=== PATIENT | female | born 1990 | race Caucasian/White ===

== ENCOUNTER 2020-02-22 18:32 | Emergency (ER) | payer BC ==
--- NOTE | 2020-02-22 19:57 | RAD REPORT ---
EXAM DESCRIPTION: RAD -Hand Left 3 View - 02/22/2020 7:41 pm CLINICAL HISTORY: Left hand pain status post injury FINDINGS: No fracture or dislocation is seen.
--- NOTE | 2020-02-22 20:16 | EDPHYS ---
Physician Documentation [facility] Name: Jennifer Pimentel Age: 29 yrs Sex: Female : 1990 Arrival Date: 02/22/2020 Time: 18:38 Bed 5 Private MD: ED Physician Andres Hughes HPI: 02/21 20:08 This 29 yrs old Female presents to ER via Ambulatory with complaints of cp Finger Injury. 20:08 The patient or guardian reports injury, pain, tenderness, painful ROM. cp 20:08 The complaints affect the left thumb. Context: resulted from attempt to catch punching cp bag from falling, felt thumb get hyperextended backward. Onset: The symptoms/episode began/occurred today. Associated signs and symptoms: Pertinent negatives: cyanosis distally, numbness distally. Historical: - Allergies: 19:12 PENICILLINS; sv - PMHx: 19:12 Endometrosis; Asthma; sv - PSHx: 19:12 left ovary removed and fallopian tube removed; sv - Immunization history:: Flu vaccine is not up to date. - Social history:: Smoking status: Patient denies any tobacco usage or history of. ROS: 20:12 Constitutional: Negative for fever. cp 20:12 Cardiovascular: Negative for chest pain. 20:12 Respiratory: Negative for cough. 20:12 Abdomen/GI: Negative for abdominal pain. 20:12 MS/extremity: Positive for pain, tenderness, of the left thumb, Negative for decreased range of motion, deformity, paresthesias. 20:12 Skin: Negative for rash. 20:12 Neuro: Negative for headache. 20:12 All other systems are negative. Exam: 20:13 Constitutional: The patient appears in no acute distress, alert, awake, well developed, cp well nourished. 20:13 Musculoskeletal/extremity: Extremities: grossly normal except: noted in the left thumb: pain, tenderness, ROM: full active range of motion, in the left thumb, limited passive range of motion due to pain, in the left thumb, Perfusion: the extremity is normally perfused throughout, Sensation intact. 20:13 Skin: intact with no signs of cellulitis. Vital Signs: 19:12 BP 108 / 82; Pulse 74; Resp 16; Temp 98.7; Pulse Ox 100% ; Weight 113.4 kg; Height 5 sv ft. 10 in. (177.80 cm); 19:12 Body Mass Index 35.87 (113.40 kg, 177.80 cm) sv Procedures: 20:30 Splinting: Splint applied to left thumb using thumb spica. applied by nurse. Examined cp by me, post splint application: neurovascular intact, Patient tolerated well. MDM: 20:06 Patient medically screened. cp 20:12 Differential diagnosis: dislocation, closed fracture, contusion, tendonitis. cp 20:14 Data reviewed: vital signs, nurses notes, radiologic studies, plain films. Counseling: cp I had a detailed discussion with the patient and/or guardian regarding: the historical points, exam findings, and any diagnostic results supporting the discharge/admit diagnosis, radiology results, to return to the emergency department if symptoms worsen or persist or if there are any questions or concerns that arise at home. 02/21 19:14 Order name: Hand Left 3 View XRAY; Complete Time: 20:11 sv 02/21 20:11 Interpretation: Report reviewed. cp 02/21 20:12 Order name: Thumb Spica Splint: left; Complete Time: 20:28 cp Administered Medications: 20:18 Drug: Tylenol 1000 mg Route: PO; ea 20:28 Follow up: Response: Medication administered at discharge. ea 20:19 Drug: Ibuprofen 800 mg Route: PO; ea 20:28 Follow up: Response: Medication administered at discharge. ea Disposition: 20:30 Chart complete. cp Disposition: 02/22/20 20:15 Discharged to Home. Impression: Unspecified sprain of left thumb. - Condition is Stable. - Discharge Instructions: Thumb Sprain. - Prescriptions for Naprosyn 500 mg Oral Tablet - take 1 tablet by ORAL route 2 times per day take with food; 20 tablet. - Medication Reconciliation Form, Thank You Letter, Antibiotic Education, Prescription Opioid Use form. - Follow up: Ricardo Juarez MD; When: 5 - 6 days; Reason: Worsening of condition. - Problem is new. - Symptoms have improved. Addendum: 02/24/2020 07:14 Co-signature as Attending Physician, Andres Hughes MD. r n Signatures: Dispatcher [employer] Shauna Mercado RN RN sv Nieto, Roman, MD MD rn Page, Corey, PA PA cp Antunez, Elena, RN RN ea Corrections: (The following items were deleted from the chart) 02/21 20:30 20:15 02/22/2020 20:15 Discharged to Home. Impression: Unspecified sprain of left ea thumb. Condition is Stable. Forms are Medication Reconciliation Form, Thank You Letter, Antibiotic Education, Prescription Opioid Use. Follow up: Ricardo Juarez; When: 5 - 6 days; Reason: Worsening of condition. Problem is new. Symptoms have improved. cp 02/22 19:14 02/21 20:20 Chart complete. cp cp
--- NOTE | 2020-02-22 20:16 | ER ---
Nurse's Notes [facility] Name: Jennifer Pimentel Age: 29 yrs Sex: Female : 1990 Arrival Date: 02/22/2020 Time: 18:38 Bed 5 Private MD: Diagnosis: Unspecified sprain of left thumb Presentation: 02/21 19:11 Chief complaint: Patient states: left thumb injury after trying to catch a punching sv bag. Reports finger bent back and popped. Coronavirus screen: Client denies travel out of the [place] in the last 14 days. At this time, the client does not indicate any symptoms associated with coronavirus-19. Ebola Screen: No symptoms or risks identified at this time. Risk Assessment: Do you want to hurt yourself or someone else? Patient reports no desire to harm self or others. Onset of symptoms was February 22, 2020. 19:11 Method Of Arrival: Ambulatory sv 19:11 Acuity: GARETH 4 sv 19:12 Initial Sepsis Screen: Does the patient meet any 2 criteria? No. Patient's initial sv sepsis screen is negative. Does the patient have a suspected source of infection? No. Patient's initial sepsis screen is negative. Triage Assessment: 19:11 General: Appears in no apparent distress. uncomfortable, well developed, Behavior is sv calm, cooperative, appropriate for age. Pain: Complains of pain in left thumb. Neuro: Level of Consciousness is awake, alert, obeys commands, Oriented to person, place, time, situation, Gait is steady. Respiratory: Respiratory effort is even, unlabored, Respiratory pattern is regular, symmetrical. Musculoskeletal: Range of motion: limited in IP of left thumb and MCP of left thumb. Historical: - Allergies: 19:12 PENICILLINS; sv - PMHx: 19:12 Endometrosis; Asthma; sv - PSHx: 19:12 left ovary removed and fallopian tube removed; sv - Immunization history:: Flu vaccine is not up to date. - Social history:: Smoking status: Patient denies any tobacco usage or history of. Screenin:08 Abuse screen: Denies threats or abuse. Nutritional screening: No deficits noted. ea Tuberculosis screening: No symptoms or risk factors identified. Fall Risk None identified. Assessment: 19:14 Reassessment: Ok by Dr Harris to input a hand xray. sv 20:14 General: Appears uncomfortable, Behavior is appropriate for age. Pain: Complains of ea pain in left thumb. Neuro: Level of Consciousness is awake, alert, obeys commands, Oriented to person, place, time. Respiratory: Airway is patent Respiratory effort is even, unlabored, Respiratory pattern is regular, symmetrical. Derm: Skin is pink, warm \T\ dry. Musculoskeletal: Swelling present in left thumb. 20:29 Reassessment: Patient and/or family updated on plan of care and expected duration. Pain ea level reassessed. Patient is alert, oriented x 3, equal unlabored respirations, skin warm/dry/pink. Discharge instruction given to patient, verbalized the understanding of instruction. Pt left ED ambulatory tolerating well. Vital Signs: 19:12 BP 108 / 82; Pulse 74; Resp 16; Temp 98.7; Pulse Ox 100% ; Weight 113.4 kg; Height 5 sv ft. 10 in. (177.80 cm); 19:12 Body Mass Index 35.87 (113.40 kg, 177.80 cm) sv ED Course: 18:38 Patient arrived in ED. ag5 18:49 Gerson Sosa PA is PHCP. cp 18:49 Andres Hughes MD is Attending Physician. cp 19:11 Triage completed. sv 19:11 Arm band placed on. sv 19:40 Hand Left 3 View XRAY In Process Unspecified. EDMS 20:08 Bruna Scott, DOMO is Primary Nurse. ea 20:09 Patient has correct armband on for positive identification. Bed in low position. Call ea light in reach. 20:15 Ricardo Juarez MD is Referral Physician. cp 20:28 No provider procedures requiring assistance completed. Patient did not have IV access ea during this emergency room visit. Administered Medications: 20:18 Drug: Tylenol 1000 mg Route: PO; ea 20:28 Follow up: Response: Medication administered at discharge. ea 20:19 Drug: Ibuprofen 800 mg Route: PO; ea 20:28 Follow up: Response: Medication administered at discharge. ea Outcome: 20:15 Discharge ordered by . cp 20:29 Discharged to home ambulatory, with family. ea 20:29 Condition: stable 20:29 Discharge instructions given to patient, Instructed on discharge instructions, follow up and referral plans. medication usage, Demonstrated understanding of instructions, follow-up care, medications, Prescriptions given X 1. 20:30 Patient left the ED. aliya Signatures: Dispatcher [employer] Shauna Mercado RN Gerson Carcamo PA PA cp Antunez, Elena RN RN Alvaro Zhu ag5 Corrections: (The following items were deleted from the chart) 19:15 19:12 Pulse 74bpm; Resp 16bpm; Pulse Ox 100%; Temp 98.7F; 113.4 kg; Height 5 ft. 10 sv in.; BMI: 35.8; sv
[2020-02-22] MEDS ORDERED: ACETAMINOPHEN 500 MG TAB ONE (20:30)
[2020-02-22] MEDS ORDERED: IBUPROFEN 400 MG TAB ONE (20:30)
[2020-02-23 04:37] VITALS: BP 108/82; TEMP 98.7; O2SAT 100
== END 2020-02-22 20:30 | disposition home or self-care (01) ==
LOC: ER 18:32
DX: S63.602A Unspecified sprain of left thumb, initial encounter (principal); Z88.0 Allergy status to penicillin
CPT/HCPCS: 99283

== ENCOUNTER 2021-08-19 09:22 | Day surgery (SDC) | payer OTHER ==
[2021-08-14 14:06] LABS: Urine Appearance CLEAR (Clear); Urine Bilirubin NEGATIVE (Negative); Urine Blood 2+ (Negative); Urine Color YELLOW (Yellow); Urine Glucose NEGATIVE (Negative); Urine Microscopic Reflex ORDER UMIC; Urine Protein NEGATIVE (Negative); Urine Specific Gravity 1.025 (1.005-1.030); Urine Urobilinogen 0.2 mg/dL (0.2-1.0); Urine pH 6.5 (5.0-7.0)
[2021-08-14 14:08] LABS: Urine Bacteria <20 /HPF (<20)
[2021-08-15 09:29] LABS: Hematocrit 36.8 % (36.0-45.0); Lymphocytes % 27.3 % (15.3-44.8); RBC Red Blood Cell Count 4.02 M/uL (3.86-4.86)
[2021-08-19] MEDS ORDERED: Ringers Lactate 1,000 ML IV ONE (09:52)
[2021-08-19] MEDS ORDERED: SCOPOLAMINE HYDROBROMIDE PATCH TD ONE (09:52)
[2021-08-19 09:57] LABS: Specific Gravity 1.025 (1.005-1.030)
[2021-08-19] MEDS ORDERED: CELECOXIB 100 MG CAPSULE ONE (11:05)
[2021-08-19] MEDS ORDERED: ACETAMINOPHEN 500 MG TAB ONE (11:05)
[2021-08-19] MEDS ORDERED: VASOPRESSIN 20 UNIT/ML VIAL ONE (11:07)
[2021-08-19] MEDS ORDERED: NA CHLORIDE 0.9% 100 ML IV ONE (11:07)
[2021-08-19] MEDS: BUPIVACAINE 0.25% PF 10 ML VIAL ONE ×2 (11:15→12:14)
[2021-08-19] MEDS ORDERED: LIDOCAINE 2% MPF 5 ML VIAL ONE (11:45)
[2021-08-19] MEDS ORDERED: propofoL 200 MG/20 ML VIAL IV ONE (11:45)
[2021-08-19] MEDS ORDERED: ONDANSETRON 4 MG/2 ML VIAL ONE ×2 (11:45→14:47)
[2021-08-19] MEDS ORDERED: ROCURONIUM 50 MG/5 ML VIAL IV ONE (11:45)
[2021-08-19] MEDS ORDERED: GLYCOPYRROLATE 0.2 MG/ML SYR ONE (11:45)
[2021-08-19] MEDS ORDERED: NEOSTIGMINE 1 MG/ML -10 ML VIAL ONE (11:45)
[2021-08-19] MEDS ORDERED: dexAMETHasone 10 MG/ML VIAL ONE (11:45)
[2021-08-19] MEDS ORDERED: FENTANYL CITR 250 MCG/5 ML ONE (11:45)
[2021-08-19] MEDS ORDERED: MIDAZOLAM HCL 2 MG/2 ML INJ ONE (11:45)
[2021-08-19] MEDS: Ringers Lactate 1,000 ML IV ONE ×2 (13:50→14:10)
[2021-08-19] MEDS ORDERED: Mastisol Adhesive Liq ONE (14:18)
[2021-08-19] MEDS ORDERED: HYDROCODONE/APAP 5/325 MG TAB PO PRN (14:28)
[2021-08-19] MEDS ORDERED: MEPERIDINE HCL 25 MG/ML SYR IM PRN (14:28)
[2021-08-19] MEDS ORDERED: PROMETHAZINE INJ 25 MG/ML AMP IV PRN (14:28)
[2021-08-19] MEDS ORDERED: IBUPROFEN 200 MG TAB PO PRN (14:28)
[2021-08-19] MEDS ORDERED: ALBUTEROL INHALER 60 PUFF/8 GM IH SCH (14:30)
--- NOTE | 2021-08-19 14:33 | P.BOP ---
Preoperative diagnosis: Rt adnexal mass, pelvic pain, endometriosis Postoperative diagnosis: Pelvic pain, Endometriosis, extensive bowel adhesions, ?appendicitis Primary procedure: diag laparoscopy, extensive BRITTANY, endmetriosis excision Secondary procedure: Dr Lloyd: lap eduardo Cdl Service Technician: Nicole Fernandez Estimated blood loss: minimal Specimen: endo of ant abd wall, appendix Findings: swollen adhered appendix Anesthesia: General Complications: None Transferred to: Recovery Room Condition: Good
[2021-08-19] MEDS: HYDROMORPHONE HCL 1 MG/ML INJ ONE ×2 (14:41→14:47)
[2021-08-19 15:30] VITALS: TEMP 97.4
[2021-08-19] MEDS ORDERED: HYDROCODONE/APAP 5/325 MG TAB ONE (15:43)
[2021-08-19 16:26] VITALS: BP 140/68; O2SAT 98
[2021-08-19] MEDS ORDERED: HOME MED 1 EA UNK (Diphenhydramine Hcl [Benadryl Allergy] 25 MG Tablet) PO SCH (21:00)
--- NOTE | 2021-08-20 00:54 | OP ---
Date of Procedure: 08/19/2021 Surgeon: Yennifer Hunt MD Acid Cutter: Nicole Cerna. Preoperative Diagnoses: Right adnexal mass, pelvic pain, endometriosis. Postoperative Diagnoses: Pelvic pain, endometriosis, extensive bowel adhesions and possible appendic itis. Procedures Performed: Diagnostic laparoscopy, extensive lysis of adhesions and endometriosis excisio n by me. Intraoperative consultation with Dr. Lloyd, who performed the laparoscopic appendectomy. Estimated Blood Loss: Minimal. Specimens: Endometriosis of the anterior abdominal wall and appendix. Findings: Swollen, adhered appendix and all the adhesions of the omentum, sigmoid and small bowel to the anterior abdominal wall, to the uterus, to the sidewalls and to the appendix. Anesthesia: General endotracheal. Complications: No complications. Drains: No drains. Condition: Stable. The patient was transferred to the recovery room in stable condition. Description Of Procedure: After informed consent was verified, the patient was taken back to OR and placed in supine fashion on the operating table. General anesthesia was given. She was placed in a dorsal lithotomy position using Rosales stirrups. Abdomen, vulva, vagina, and perineum were prepped an d draped in a sterile fashion. Shahid was placed to drain the bladder. It was difficult to place the uterine manipulator. It was difficult to manipulate into the uterine cavity so just a speculum was left with an Allis clamp on the anterior lip of the cervix to come back and later place the manipulat or after getting into the abdomen. The patient was placed in a supine fashion and local 0.25% Marcaine was injected at the infraumbilica l area. A 1 cm infraumbilical skin incision was made with the scalpel and fascia was dissected and t agged with 0 Vicryl sutures. Peritoneum was entered sharply. S-retractors were placed. After adequ ate insufflation, site of entry was checked and was unremarkable. There were adhesions all around th e site of entry and carefully looking in the left lower quadrant and right lower quadrant, clearly th ere were spots where I could place the trocar and so first a 5 left lower quadrant trocar was placed under direct vision, then a 5 left upper quadrant trocar was placed under direct vision. Once the Li gaSure was taken and grasper was used to create windows, the omentum was first taken down. Then, aft er changing from a 10 to a 5 scope, using the left upper quadrant scope, the infraumbilical adhesions and periumbilical adhesions were all taken down. Then coming to the left lower quadrant, there were significant sigmoid adhesions to the anterior abdo jeff wall. At any point during this time, I could not see any pelvic organ, so I kept taking down t he adhesions for the sigmoid colon to the left lateral wall and to the top of the uterine fundus. The anterior abdominal wall also had to be dissected between the uterus and the fascia in order for m e to create a space and so then the rest of the omental adhesions were taken down to expose the top o f the fundus of the uterus. Once this was done, then I was able to take down the rest of the adhesio ns from the right lateral sidewall. Here, adhesions from the anterior and lateral bell were taken d own sharply with the help of scissors. There was small bowel stuck here as well and this was taken d own. Then the next layer of adhesions were from another loop of small bowel, these were also taken down. Then left adnexal area was exposed, then more omental adhesions had to be taken down from the anterio r abdominal wall for me to see the sidewall in the inferior aspect as well as the uterus. Here, the adhesions had to be taken down from the uterus. There were sigmoid adhesions to the posterior wall o f the uterus and these were then taken down sharply, making sure a plane was created between the alva l and the uterine serosa. Once all the sigmoid adhesions were taken down from the left side, the ova ry and tube appeared to be completely adhered to the posterior broad ligament on the right side. Cul -de-sac seemed to be completely obliterated. I then worked on the adhesions on the left side so that I could start taking down the colon from the left all the way to the right and once this was done, I could find the sigmoid attachments to the adnexal region on the right side. Once these were taken d own, I could clearly see where the appendix was adhered to the anterior peritoneum of the mesosalpinx and broad ligament, superior to the round ligament. This was significantly elongated and swollen so intraoperative consultation, Dr. Lloyd had to come in and please look at his dictation for the re st of the note. I assisted on this part of the procedure so that he could finish his appendectomy. The surgery was turned over to me and finished taking down this to the sigmoid adhesions to try and i dentify the tube and ovary, but this was extremely difficult as these were adhered with cul-de-sac ob literation as well. So, the endometriosis on the anterior fascial bell were excised as there were 2 large implants. No other endometriosis seen in isolated fashion. On the left side, it was difficul t to even identify the tube, the ovary was gone and on the right side as I dictated, it was difficult to visualize these separately and this was not a time where I could dissect the lateral sidewall as there were significant adhesions from the bowel itself. Thorough irrigation and suction were performed after his surgery and after making sure that all the b ed of dissection that I did was hemostatic and moved on to the next part of the procedure where all t he trocars were removed. The left upper quadrant incision had some bleeding from it so a 3-0 Monocry l was used with the Vince-Rowena needle to stitch tie the area where it was bleeding slightly. On ce this was done, there was excellent hemostasis. All trocar sites were completely unremarkable. Tr ocars were pulled out, injected with 0.25% Marcaine at the beginning and at the end. The fascia at t he umbilicus was closed with the help of the 0 Vicryl sutures, tagged on the sides, tied to each othe r and 3-0 and 4-0 chromic sutures in an interrupted fashion were used to close all the skin incisions . Shahid was removed. No uterine manipulator was placed. All instruments were removed. Instrument, needle, and sponge counts were correct at the end of the case. The patient tolerated the procedure well. She got 2 g of Ancef at the end of the procedure. She will follow up with me in 1 week. Her partner was debriefed about all the findings. 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 BIBIANA/SHANON Voice ID: [id number] Report ID: [id number]
--- NOTE | 2021-08-20 04:45 | OP ---
Date of Procedure: 08/19/2021 Surgeon: David Lloyd MD Ms. Pimentel is a 31-year-old patient whom Dr. Hunt from [facility] brought into the OR for the plan o f apparent hysterectomy. I have not seen the patient in the past. The information that I have is li juan pablod by what I get from the primary doctor, but while she was in OR, they found the appendix to be i nflamed and they called me for STAT evaluation for appendectomy. Once again, we have not seen this p atient before, so we have to proceed with appendectomy since I agree with Dr. Hunt, it looked inf lamed. The trocars and the instruments were already in the abdomen, so I was not there for the begin terence of the case until now and I left the OR after my appendectomy and Dr. Hunt continued with e service. On my initial evaluation, I noticed the patient to have, and I agree with them, appendici tis with the base of the appendix spared from that inflammation. There were some omental adhesions t o the appendix, which was consistent with chronic inflammation. The base of the appendix was identif ied free of disease, so we created a window in the base of the appendix, transected that with the End o-LULI 45 mm nonvascular. The mesoappendix was transected carefully with the help of Harmonic scalpel , making sure that no other injuries were there. We were away from the bowel. No enterotomies were done. After finishing the case, further hemostasis was obtained with the 5 mm clips after the append ix was removed from the abdomen. We irrigated the area. Once again checked the area of the cecum. There was no bowel leak and the area where the mesoappendix was, there was no bleeding. At that mome nt, I gave the instrument back to Dr. Hunt, and she will continue with her gynecological plan. I will advise the patient to be sent to my office. Addendum: When she was awake in the day surgery, I was able to contact her and also her family membe r. I explained to her my part on the surgery, and how I was not there for the beginning, but Dr. Elmira corona noticed her to have an appendicitis and therefore, the appendectomy had to be done and she want ed some help from General Surgery. I was happy to be able to assist in the case, but when she goes h ome, we advised her to follow with me in a week from now. Also, follow up with Dr. Hunt. No hea vy lifting, no more than 20 pounds. She asked me some questions about why the hysterectomy was not d one, and I am going to have to decline any answers because I was not there and I was not part of the management of that area, but I am going to ask the nurse here to be able to call Dr. Hunt to give further explanation that she deserved. From the surgical standpoint, we asked the patient once agai n not to do heavy lifting and follow with me in a week from now. BETTINA/SHANON Voice ID: [id number] Report ID: [id number]
[2021-08-20] MEDS ORDERED: HOME MED 1 EA UNK (Cetirizine Hcl [Zyrtec] 10 MG Tablet) PO SCH (09:00)
== END 2021-08-19 16:30 | disposition home or self-care (01) ==
LOC: OR 09:22
PROVIDERS: ATTEND Obstetrics & Gynecology
PROC: 0DNU4ZZ Release Omentum, Percutaneous Endoscopic Approach (ICD-10-PCS; 2021-08-19)
PROC: 0DNN4ZZ Release Sigmoid Colon, Percutaneous Endoscopic Approach (ICD-10-PCS; 2021-08-19)
PROC: 0DN84ZZ Release Small Intestine, Percutaneous Endoscopic Approach (ICD-10-PCS; 2021-08-19)
PROC: 0UN94ZZ Release Uterus, Percutaneous Endoscopic Approach (ICD-10-PCS; 2021-08-19)
PROC: 0DTJ4ZZ Resection of Appendix, Percutaneous Endoscopic Approach (ICD-10-PCS; 2021-08-19)
PROC: 0WBF4ZZ Excision of Abdominal Wall, Percutaneous Endoscopic Approach (ICD-10-PCS; principal; 2021-08-19 11:00)
DX: R10.2 Pelvic and perineal pain (principal); N80.3 Endometriosis of pelvic peritoneum; N94.6 Dysmenorrhea, unspecified; N92.0 Excessive and frequent menstruation with regular cycle; R19.09 Other intra-abdominal and pelvic swelling, mass and lump; Z20.822 Contact with and (suspected) exposure to COVID-19; Z88.0 Allergy status to penicillin
CPT/HCPCS: 85025; 36415; 86900; 86850; 81025; 86901; 88304; 88305; 58662; 49329; 44180; 58578; 44970; U0002; J2704; J2710; J2250; J3010; J1100; J1170; J7120 ×2; J2405 ×2; 81003; 81015

== ENCOUNTER 2021-08-24 16:48 | Inpatient (IN) | payer OTHER ==
[2021-08-24 18:30] LABS: Absolute Lymphocytes (CBC) 0.6 K/uL (0.7-4.9); Hematocrit 39.7 % (36.0-45.0); Lymphocytes % 4.2 % (15.3-44.8); MPV 8.8 fL (7.6-11.3); RBC Red Blood Cell Count 4.38 M/uL (3.86-4.86)
[2021-08-24] MEDS ORDERED: NA CHLORIDE 0.9% 1,000 ML ONE ×2 (18:37→21:04)
[2021-08-24] MEDS ORDERED: ONDANSETRON 4 MG/2 ML VIAL ONE ×2 (18:37→22:15)
[2021-08-24] MEDS ORDERED: FAMOTIDINE 20 MG/2 ML VIAL IV ONE (18:37)
[2021-08-24 18:41] LABS: Albumin 4.2 g/dL (3.4-5.0); Bilirubin Total 0.5 mg/dL (0.2-1.0); Potassium 3.5 mmol/L (3.5-5.1); Protein, Total 7.8 g/dL (6.4-8.2)
--- NOTE | 2021-08-24 19:32 | RAD REPORT ---
EXAM DESCRIPTION: CT - Abdomen Pelvis W Contrast - 08/24/2021 7:11 pm CLINICAL HISTORY: Abdominal pain, acute, nonlocalized, appendectomy and endometriosis surgery severa l days earlier COMPARISON: Pelvis W/Wo Cont dated 07/22/2021 TECHNIQUE: Biphasic, helical CT imaging of the abdomen and pelvis was performed following 100 ml non -ionic IV contrast. No oral contrast. All CT scans are performed using dose optimization technique as appropriate and may include automated exposure control or mA/KV adjustment according to patient size. FINDINGS: No suspicious findings in the lung bases. Mild diffuse fatty infiltration of the liver with no focal liver lesion. No pancreatic or splenic abn ormality. Gallbladder and biliary tree are also without suspicious finding. Symmetric renal function is seen with no hydronephrosis or suspicious renal mass. No pyelonephritis o r acute parenchymal process. No bladder abnormalities. No adrenal abnormalities. Approximately 5 centimeter heterogeneous hypodense to isodense masses present in the posterior uterus . This presumed fibroid was seen on the July pelvic MRI study. No gross change to the uterus. Left o vary is not clearly defined. No left adnexal abnormality seen. An 8 x 5 centimeter cystic mass is pre sent with septation. Mass is located in the right adnexa. Cystic attenuation ranges from 5-15 HU. The July MRI study showed a 6 x 4 cm cystic mass with septation in the right adnexa. Current mass compl ex may simply be interval enlargement. History indicates endometriosis surgery. Full extent of proced ure performed is uncertain. Postoperative seroma is possible. Abscess is not likely. Hydrosalpinx is possible. Appendectomy clips are present. No acute large or small bowel finding. No free air, pneumatosis or f ree fluid. No hernia, mass or bulky lymphadenopathy. No suspicious bony findings. IMPRESSION: A right adnexal 8 x 5 cm cystic mass with septation is seen. Central cystic attenuation is 5- 15 HU in range. The July MRI study showed a 6 x 4 cm mass of similar characteristics but smaller size. The current f inding may represent interval enlargement. It is unknown what surgery procedures performed other than appendectomy. Abscess is not suspected. Postop seroma is unlikely. Hydrosalpinx is unlikely but not entirely exclud ed. Appendectomy surgical changes noted. No acute GI finding. Posterior uterine fibroid matching the July study.
--- NOTE | 2021-08-24 19:39 | RAD REPORT ---
EXAM DESCRIPTION: RAD - Chest Single View - 08/24/2021 6:48 pm CLINICAL HISTORY: FEVER COMPARISON: None TECHNIQUE: AP portable chest image was obtained 08/24/2021 6:48 pm . FINDINGS: Lungs are clear. Heart and vasculature are normal. No measurable pleural effusion and no p neumothorax. No acute bony abnormality seen. No acute aortic findings suspected. IMPRESSION: No acute cardiopulmonary process.
[2021-08-24 19:43] LABS: Urine Blood 1+ (Negative); Urine Glucose Negative (Negative); Urine Protein Negative (Negative); Urine pH 7.5 (5.0-7.0)
[2021-08-24] MEDS ORDERED: FENTANYL CITR 100 MCG/2 ML ONE ×2 (20:05→21:51)
[2021-08-24 20:19] LABS: Urine Bacteria <20 /HPF (<20)
[2021-08-24] MEDS ORDERED: Meropenem 1000 MG/VIAL IV ONE (21:49)
[2021-08-24] MEDS ORDERED: NA CHLORIDE 0.9% 100 ML IV ONE (21:51)
--- NOTE | 2021-08-24 22:13 | EDPHYS ---
Physician Documentation [facility] Name: Jennifer Pimentel Age: 31 yrs Sex: Female : 1990 Arrival Date: 08/24/2021 Time: 16:50 Bed 6 Private MD: ED Physician Carl Bowen HPI: 08/24 18:00 This 31 yrs old Female presents to ER via Wheelchair with complaints of Fever, Post cp Surgical Pain. 18:00 The patient reports fever, that was measured at 100.8 degrees Fahrenheit. cp 18:00 Onset: The symptoms/episode began/occurred today. Associated signs and symptoms: cp Pertinent positives: nausea, vomiting, body aches, tingling of hands and feet. Severity of symptoms: in the emergency department the symptoms are unchanged despite home interventions. Patient presents to the emergency department with complaints of nausea vomiting, generalized pain and body aches, and a fever as high as 100.8 today. Patient reports she had appendectomy performed by general surgeon at this facility this past Thursday with a surgical procedure to remove adhesions caused by endometriosis by Dr. Hunt. Patient reports she has been taking Cipro and Flagyl and contacted the office with Dr. Hamilton today after symptoms started with concerns for possible medication reaction. She was instructed to stop the Cipro and a different antibiotic was called into the pharmacy. Patient reports she has not picked up this new antibiotic as symptoms continue to get worse so she came to the emergency room for evaluation. 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 - Social history:: Smoking status: unknown. ROS: 18:05 Constitutional: Positive for body aches, chills, poor PO intake, Negative for fever. cp 18:05 Eyes: Negative for injury, pain, redness, and discharge. cp 18:05 ENT: Negative for drainage from ear(s), ear pain, sore throat, difficulty swallowing, difficulty handling secretions. 18:05 Cardiovascular: Negative for chest pain, palpitations. 18:05 Respiratory: Negative for cough, shortness of breath, wheezing. 18:05 Abdomen/GI: Positive for abdominal pain, nausea and vomiting, Negative for diarrhea, constipation. 18:05 Back: Positive for pain at rest, pain with movement. 18:05 Skin: Negative for cellulitis, rash. 18:05 Neuro: Negative for altered mental status, headache. 18:05 All other systems are negative. Exam: 18:10 Constitutional: The patient appears in no acute distress, alert, awake, non-toxic, well cp developed, well nourished, uncomfortable. 18:10 Head/Face: Normocephalic, atraumatic. cp 18:10 Eyes: Periorbital structures: appear normal, Conjunctiva: normal, no exudate, no injection, Sclera: no appreciated abnormality, Lids and lashes: appear normal, bilaterally. 18:10 ENT: External ear(s): are unremarkable, Nose: is normal, Mouth: Lips: moist, Oral mucosa: pink and intact, moist, Posterior pharynx: Airway: no evidence of obstruction, patent, Tonsils: are normal in appearance, erythema, is not appreciated, exudate, is not appreciated. 18:10 Neck: ROM/movement: is normal, is supple, without pain, no range of motions limitations, no meningismus, no nuchal rigidity. 18:10 Chest/axilla: Inspection: normal, Palpation: is normal, no crepitus, no tenderness. 18:10 Cardiovascular: Rate: tachycardic, Rhythm: regular. 18:10 Respiratory: the patient does not display signs of respiratory distress, Respirations: normal, no use of accessory muscles, no retractions, labored breathing, is not present, Breath sounds: are clear throughout, no decreased breath sounds, no stridor, no wheezing. 18:10 Abdomen/GI: Inspection: bruising, all quadrants, distension, is not seen, Bowel sounds: active, all quadrants, Palpation: soft, in all quadrants, moderate abdominal tenderness, in the right lower quadrant and left lower quadrant, rebound tenderness, is not appreciated, involuntary guarding, is not appreciated. 18:10 Back: CVA tenderness, is absent. 18:10 Skin: cellulitis, is not appreciated, no rash present. 18:10 Neuro: Orientation: to person, place \\T\\ time. Mentation: is normal, Motor: moves all fours, strength is normal, Sensation: no obvious gross deficits. Vital Signs: 17:07 Pulse 117; Resp 18; Temp 98.2; Pulse Ox 98% on R/A; iw 19:57 BP 102 / 76; kd3 20:58 Pulse 102; kd3 22:13 BP 127 / 81; Pulse 92; Pulse Ox 99% on R/A; kd3 08/25 00:30 Pulse 94; Resp 19; Pulse Ox 99% on R/A; kd3 MDM: 08/24 18:35 Patient medically screened. cp 19:00 Differential diagnosis: pneumonia UTI, intra abdominal infection. cp 20:54 Physician consultation: Yennifer Hunt MD was called at 20:55, left message on voicemail. 21:00 Data reviewed: vital signs, nurses notes, lab test result(s), radiologic studies, CT cp scan. 21:00 Counseling: I had a detailed discussion with the patient and/or guardian regarding: the cp historical points, exam findings, and any diagnostic results supporting the discharge/admit diagnosis, lab results, radiology results. 21:15 Physician consultation: Yennifer Hunt MD was contacted at 21:15, regarding consult, cp patient's condition, would like consultation with Dr. Lloyd. 21:25 Physician consultation: David Lloyd MD was contacted at 21:20, regarding patient's cp condition, recommends admission for observation, IV antibiotics and will consult and see patient on Thursday once he returns to [facility]. 21:30 Physician consultation: Yennifer Hunt MD was contacted at 21:30, regarding consult, cp patient's condition, requests admission to hospitalist services and will see patent in morning for evaluation. 08/24 17:36 Order name: CBC with Diff; Complete Time: 19:41 ma2 08/24 19:43 Interpretation: Normal except: WBC 14.9; SHOLA% 82.0; LYM% 4.2; NEUT A 12.2; LYMA 0.6; cp MNA 1.5. 08/24 17:36 Order name: CMP; Complete Time: 19:41 ma2 08/24 19:41 Interpretation: Normal except: NA 134; GLUC 108; BUN 5. cp 08/24 17:36 Order name: Lipase; Complete Time: 19:41 ma2 08/24 18:29 Order name: Urine Microscopic Only; Complete Time: 20:32 cp 08/24 20:32 Interpretation: URBC 5-10; SQEPI 10-20; Reviewed. 08/24 18:29 Order name: Lactate; Complete Time: 19:41 cp 08/24 18:29 Order name: XRAY Chest (1 view); Complete Time: 19:41 cp 08/24 18:29 Order name: CT Abd/Pelvis - IV Contrast Only; Complete Time: 19:41 cp 08/24 18:44 Order name: Creatine Phosphokinase; Complete Time: 19:41 EDMS 08/24 19:43 Order name: Urine Dipstick-Ancillary; Complete Time: 19:53 EDMS 08/24 20:20 Order name: Urine --Ancillary (enter results); Complete Time: 20:32 wm 08/24 21:18 Order name: Blood Culture Adult (2) cp 08/24 21:18 Order name: Procalcitonin; Complete Time: 02:46 cp 08/24 22:31 Order name: COVID-19 SARS RT PCR (Document "Date of Onset" if Symptomatic); Complete cp Time: 02:46 08/24 17:36 Order name: IV Saline Lock; Complete Time: 18:14 ma2 08/24 17:36 Order name: Labs collected and sent; Complete Time: 18:14 ma2 08/24 17:36 Order name: Urine Dipstick-Ancillary (obtain specimen); Complete Time: 19:44 ma2 08/24 17:36 Order name: Urine Test (obtain specimen); Complete Time: 19:44 ma2 Administered Medications: 18:37 Drug: Pepcid (famotidine) 20 mg Route: IVP; Site: right antecubital; 08/25 00:32 Follow up: Response: No adverse reaction [facility] 08/24 18:38 Drug: NS 0.9% 1000 ml Route: IV; Rate: 1 bolus; Site: right antecubital; 08/25 00:32 Follow up: Response: No adverse reaction; IV Status: Completed infusion [facility] 08/24 18:38 Drug: Zofran (Ondansetron) 4 mg Route: IVP; Site: right antecubital; 08/25 00:33 Follow up: Response: No adverse reaction [facility] 08/24 20:07 Drug: fentaNYL (PF) 25 mcg Route: IVP; Site: right antecubital; [facility] 08/25 00:32 Follow up: Response: No adverse reaction 3 08/24 21:09 Drug: NS 0.9% 1000 ml Route: IV; Rate: 1 bolus; Site: right antecubital; 08/25 00:32 Follow up: IV Status: Completed infusion 08/24 21:52 Drug: fentaNYL (PF) 25 mcg Route: IVP; Site: right antecubital; 3 08/25 00:31 Follow up: Response: No adverse reaction 08/24 21:53 Drug: Meropenem 1 grams Route: IV; Rate: calculated rate; Site: right antecubital; 3 08/25 00:31 Follow up: IV Status: Completed infusion 00:32 Follow up: Response: No adverse reaction 08/24 22:12 Drug: Zofran (Ondansetron) 4 mg Route: IVP; Site: right antecubital; 3 08/25 00:31 Follow up: Response: No adverse reaction 08/24 23:32 Drug: Phenergan (promethazine) 12.5 mg Route: IVP; Site: right antecubital; 3 08/25 00:31 Follow up: Response: No adverse reaction kd3 Disposition Summary: 08/24/21 22:12 Hospitalization Ordered Hospitalization Status: Observation cp Provider: Mauricio Hall cp [facility] cp Condition: Stable cp Problem: new cp Symptoms: have improved cp Bed/Room Type: Standard cp Room Assignment: 223(08/25/21 00:15) ll1 Diagnosis - Nausea with vomiting, unspecified cp - Fever, unspecified cp Forms: - Medication Reconciliation Form cp - SBAR form cp Signatures: Dispatcher [employer] EDMS Radha Boo RN RN iw Smirch, Shelby, RN RN ss Page, Corey, PA PA cp Carl Bowen MD MD ma2 Claudia Jo RN RN ll1 Claire Marie RN RN kd3 Rosario Kumar PA PA sb3 Corrections: (The following items were deleted from the chart) 08/24 18:44 18:29 CREATINE PHOSPHOKINASE+C.LAB.BRZ ordered. EDMS EDMS 19:43 19:41 Normal except: WBC 14.9. cp cp 19:44 18:29 Zehra poole. cp kd3 20:32 20:32 [facility]. cp 08/25 00:15 08/24 22:12 cp 1
--- NOTE | 2021-08-24 22:13 | ER ---
Nurse's Notes [facility] Name: eJnnifer Pimentel Age: 31 yrs Sex: Female : 1990 Arrival Date: 08/24/2021 Time: 16:50 Bed 6 Private MD: Diagnosis: Nausea with vomiting, unspecified;Fever, unspecified Presentation: 08/24 17:07 Chief complaint: Patient states: had surgery for endometriosis and appendectomy on iw Thursday , Dr. Hunt did the surgery, someone else took the appendix out, was started on cipro and flagyl. and nauseous, bay aches, fingers and toes were tingling, fever at home. Coronavirus screen: Client presents with at least one sign or symptom that may indicate coronavirus-19. Ebola Screen: Patient negative for fever greater than or equal to 101.5 degrees Fahrenheit, and additional compatible Ebola Virus Disease symptoms Patient denies exposure to infectious person. Patient denies travel to an Ebola-affected area in the 21 days before illness onset. No symptoms or risks identified at this time. Initial Sepsis Screen: Does the patient have a suspected source of infection?. Initial Sepsis Screen: Does the patient meet any 2 criteria? No. Patient's initial sepsis screen is negative. Does the patient have a suspected source of infection?. Risk Assessment: Do you want to hurt yourself or someone else? Patient reports no desire to harm self or others. Onset of symptoms was August 24, 2021. 17:07 Method Of Arrival: Wheelchair iw 17:07 Acuity: GARETH 3 iw Triage Assessment: 20:58 General: Appears in no apparent distress. Behavior is agitated. Pain: Pain currently is kd3 5 out of 10 on a pain scale. DIRECTOR OF OFFICIATING: 08/25 00:30 LMP 07/24/2021 kd3 Historical: - Allergies: 08/24 17:10 PENICILLINS; iw - PMHx: 17:10 Asthma; Endometrosis; iw - Immunization history:: Adult Immunizations. - Social history:: Smoking status: unknown. Screenin:38 Abuse screen: Denies threats or abuse. Denies injuries from another. Nutritional ss screening: No deficits noted. 21:10 Fall Risk IV access (20 points). kd3 21:10 Tuberculosis screening: No symptoms or risk factors identified. kd3 Assessment: 18:38 Reassessment: Attempted to place patient in wheelchair and to wait in lobby with family ss member for staffed room to become available. Pt is upset and refusing to leave room because sitting in a chair is uncomfortable for her. Pt and family member verbalizes understanding that they are not in a staffed room and they will have to wait for one to become available as if they were in the lobby. Vital Signs: 17:07 Pulse 117; Resp 18; Temp 98.2; Pulse Ox 98% on R/A; iw 19:57 BP 102 / 76; kd3 20:58 Pulse 102; kd3 22:13 BP 127 / 81; Pulse 92; Pulse Ox 99% on R/A; kd3 08/25 00:30 Pulse 94; Resp 19; Pulse Ox 99% on R/A; kd3 ED Course: 08/24 16:50 Patient arrived in ED. mr 17:10 Triage completed. iw 17:10 Arm band placed on. iw 18:14 CBC with Diff Sent. zm 18:14 CMP Sent. zm 18:14 Lipase Sent. zm 18:14 Inserted saline lock: 22 gauge in right antecubital area, using aseptic technique. zm Blood collected. 18:15 Gerson Sosa PA is PHCP. cp 18:15 Carl Bowen MD is Attending Physician. cp 18:37 Treva Lema, RN is Primary Nurse. ss 18:50 XRAY Chest (1 view) In Process Unspecified. EDMS 19:13 CT Abd/Pelvis - IV Contrast Only In Process Unspecified. EDMS 21:10 Patient has correct armband on for positive identification. kd3 21:10 No provider procedures requiring assistance completed. kd3 22:12 Mauricio Hall is Hospitalizing Provider. cp 08/25 00:30 Patient admitted, IV remains in place. kd3 Administered Medications: 08/24 18:37 Drug: Pepcid (famotidine) 20 mg Route: IVP; Site: right antecubital; 08/25 00:32 Follow up: Response: No adverse reaction kd3 08/24 18:38 Drug: NS 0.9% 1000 ml Route: IV; Rate: 1 bolus; Site: right antecubital; 08/25 00:32 Follow up: Response: No adverse reaction; IV Status: Completed infusion kd3 08/24 18:38 Drug: Zofran (Ondansetron) 4 mg Route: IVP; Site: right antecubital; 08/25 00:33 Follow up: Response: No adverse reaction kd3 08/24 20:07 Drug: fentaNYL (PF) 25 mcg Route: IVP; Site: right antecubital; kd3 08/25 00:32 Follow up: Response: No adverse reaction kd3 08/24 21:09 Drug: NS 0.9% 1000 ml Route: IV; Rate: 1 bolus; Site: right antecubital; kd3 08/25 00:32 Follow up: IV Status: Completed infusion kd3 08/24 21:52 Drug: fentaNYL (PF) 25 mcg Route: IVP; Site: right antecubital; kd3 08/25 00:31 Follow up: Response: No adverse reaction kd3 08/24 21:53 Drug: Meropenem 1 grams Route: IV; Rate: calculated rate; Site: right antecubital; kd3 08/25 00:31 Follow up: IV Status: Completed infusion kd3 00:32 Follow up: Response: No adverse reaction kd3 08/24 22:12 Drug: Zofran (Ondansetron) 4 mg Route: IVP; Site: right antecubital; kd3 08/25 00:31 Follow up: Response: No adverse reaction kd3 08/24 23:32 Drug: Phenergan (promethazine) 12.5 mg Route: IVP; Site: right antecubital; kd3 08/25 00:31 Follow up: Response: No adverse reaction kd3 Medication: 00:30 VIS not applicable for this client. kd3 Outcome: 08/24 22:12 Decision to Hospitalize by Provider. estuardo 08/25 00:29 Admitted to Med/surg room 223, Report called to shellie kd3 Condition: stable Discharge instructions given to patient, Instructed on the need for admit, Demonstrated understanding of instructions, follow-up care. 00:33 Patient left the ED. kd3 Signatures: Dispatcher [employer] EDOH Jolie Hernandez Radha Boo RN DOMO Treva Lema RN RN ss Page, Corey, PA PA cp Doucette, Kyli, RN RN kd3 Tammy Lloyd
[2021-08-24] MEDS ORDERED: PROMETHAZINE INJ 25 MG/ML AMP ONE (23:18)
--- NOTE | 2021-08-24 23:43 | P.HP ---
Certification for Inpatient Patient admitted to: Inpatient With expected LOS: <2 Midnights Patient will require the following post-hospital care: None Practitioner: I am a practitioner with admitting privileges, knowledge of patient current condition, hospital course, and medical plan of care. Services: Services provided to patient in accordance with Admission requirements found in Title 42 Section 412.3 of the Code of Federal Regulations Patient History Date of Service: 08/25/21 Reason for admission: Nausea, Vomiting, Fever History of Present Illness: Patient is a 31-year-old female who presented to the ED with complaints of fever, vomiting, and pain all over. On 08/19, she had a diagnostic laparoscopy with endometriosis excision and lap appendectomy without complications and was sent home with Cipro and Flagyl. Patient thought she might be having a reaction to Cipro so she called Dr. Hunt who instructed her to stop taking it and prescribed her a new antibiotic. However, she decided to come to the ED. lab significant for WBC 15, lactate 2.0, COVID positive. CT abdomen pelvis negative for acute findings. ED provider contacted Dr. Hunt, who wishes for patient to be admitted by hospitalist (started on IV antibiotics, fluids, pain control) and will consult. Dr. lLoyd (who performed appendectomy) states he will be available to see patient on Thursday. Patient started on meropenem. Upon my assessment, patient states that her pain is not localized to her surgical incision sites, but all over her body. She is still complaining of intractable nausea and vomiting. Fever has resolved. Will admit patient for further evaluation and treatment. Allergies Penicillins Allergy (Verified 08/25/21 00:58) Itching/Hives/Rash Home medications list reviewed: Yes Home Medications: Albuterol Inhaler [Ventolin Inhaler*] 1 puff IH DAILY PRN 08/14/21 Cetirizine HCl [Zyrtec] 1 tab PO DAILY 08/14/21 Diphenhydramine HCl [Benadryl Allergy] 1 tab PO BID 08/14/21 Ciprofloxacin HCl [Cipro] 500 mg PO BID 08/25/21 Hydrocodone 5/APAP 325 [[place] 5/325] 1 tab PO Q6H PRN 08/25/21 metroNIDAZOLE [Metronidazole] 500 mg PO BID 08/25/21 - Past Medical/Surgical History Diabetic: No -: Asthma -: Endometriosis -: Appendectomy Psychosocial/ Personal History: Patient lives at home with her girlfriend. - Family History Mother -: Cancer - Social History Smoking Status: Former smoker Alcohol use: No CD- Drugs: Yes Caffeine use: Yes Place of Residence: Home Review of Systems General: Weakness Gastrointestinal: Nausea, Vomiting, Abdominal Pain, No Distention Physical Examination - Physical Exam General: Alert, In no apparent distress HEENT: Atraumatic, PERRLA, EOMI, Sclerae nonicteric Neck: Supple, 2+ carotid pulse no bruit, No LAD, Without JVD or thyroid abnormality Respiratory: Clear to auscultation bilaterally, Normal air movement Cardiovascular: Regular rate/rhythm, Normal S1 S2 Gastrointestinal: Normal bowel sounds, Soft and benign, Non-distended, Tenderness (mild tenderness near incision sites) Musculoskeletal: No tenderness Integumentary: No rashes Neurological: Normal gait, Normal speech, Normal strength at 5/5 x4 extr, Normal tone, Normal affect - Studies Laboratory Data (last 24 hrs) 08/24/21 18:10: Sodium 134 L, Potassium 3.5, BUN 5 L, Creatinine 0.75, Glucose 108 H, Total Bilirubin 0.5, AST 27, ALT 32, Alkaline Phosphatase 75, Lipase 80 08/24/21 18:10: WBC 14.9 H D, Hgb 13.2, Hct 39.7, Plt Count 296 Assessment and Plan - Problems (Diagnosis) (1) Nausea and vomiting Current Visit: Yes Status: Acute Qualifiers: Vomiting type: unspecified Qualified Code(s): R11.2 - Nausea with vomiting, unspecified (2) Endometriosis Current Visit: Yes Status: Chronic (3) COVID-19 Current Visit: Yes Status: Acute (4) Postoperative abdominal pain with fever Current Visit: Yes Status: Acute - Plan -Admit patient to medical floor -Cont meropenem for infection. Source unclear at this time -IVF at 100 cc/hr. -Clear liquid diet, advance as tolerated -Promethazine PRN nausea/vomiting -Morphine PRN pain -Tylenol PRN fever -Breathing treatments PRN as patient has history of asthma -Dr. Hunt and [place] notified and consulting -Lovenox for VTE PPx Discharge Plan: Home Plan to discharge in: 48 Hours - Advance Directives Does patient have a Living Will: No Does patient have a Durable POA for Healthcare: No - Code Status/Comfort Care Code Status Assessed: Yes (Full) Critical Care: No Time Spent Managing Pts Care (In Minutes): 50
[2021-08-25] MEDS ORDERED: ACETAMINOPHEN 500 MG TAB PO PRN (00:42)
[2021-08-25] MEDS ORDERED: MORPHINE 2 MG/ML SYR IV PRN (00:42)
[2021-08-25] MEDS: NA CHLORIDE 0.9% 1,000 ML IV SCH ×2 (00:54→12:38)
[2021-08-25] MEDS ORDERED: ALBUTEROL 2.5 MG/3 ML NEB SOL NEB PRN (01:40)
[2021-08-25 02:27] VITALS: BMI 41.1
[2021-08-25] MEDS: MORPHINE 4 MG/ML SYR IV PRN ×4 (05:49→20:56)
[2021-08-25 06:02] LABS: Absolute Lymphocytes (CBC) 0.8 K/uL (0.7-4.9); Hematocrit 34.9 % (36.0-45.0); Lymphocytes % 7.9 % (15.3-44.8); MPV 8.8 fL (7.6-11.3); RBC Red Blood Cell Count 3.84 M/uL (3.86-4.86)
[2021-08-25 06:19] LABS: Albumin 3.6 g/dL (3.4-5.0); Bilirubin Total 0.3 mg/dL (0.2-1.0); Magnesium 1.9 mg/dL (1.8-2.4); Phosphorus 2.6 mg/dL (2.5-4.9); Potassium 3.6 mmol/L (3.5-5.1); Protein, Total 6.8 g/dL (6.4-8.2)
[2021-08-25] MEDS ORDERED: POTASSIUM CL SA 10 MEQ TAB PO ONE (09:00)
[2021-08-25] MEDS: Meropenem 1,000 MG in NA CHLORIDE 0.9% 100 ML IV SCH ×2 (09:14→20:13)
[2021-08-25] MEDS: ENOXAPARIN 40 MG/0.4 ML SQ SCH (09:14)
[2021-08-25] MEDS: PROMETHAZINE INJ 25 MG/ML AMP IV PRN ×3 (12:38→20:56)
--- NOTE | 2021-08-25 12:49 | P.PN ---
Subjective Date of Service: 08/25/21 Chief Complaint: Nausea, Vomiting, Fever Patient states she feels much better today. She has tolerated clear liquid diet and wants her diet advanced. No vomiting today. Physical Examination - Vital Signs Temperature: 98.1 F Blood Pressure: 126/77 Pulse: 70 Respirations: 18 Pulse Ox (%): 98 - Physical Exam General: Alert, In no apparent distress, Oriented x3 HEENT: Mucous membr. moist/pink Neck: JVD not distended Respiratory: Clear to auscultation bilaterally, Normal air movement Cardiovascular: No edema, Regular rate/rhythm, Normal S1 S2 Gastrointestinal: Soft and benign, Non-distended Musculoskeletal: No swelling Integumentary: No rashes Neurological: Normal strength at 5/5 x4 extr - Studies Laboratory Data (last 24 hrs) 08/24/21 18:10: Sodium 134 L, Potassium 3.5, BUN 5 L, Creatinine 0.75, Glucose 108 H, Total Bilirubin 0.5, AST 27, ALT 32, Alkaline Phosphatase 75, Lipase 80 08/24/21 18:10: WBC 14.9 H D, Hgb 13.2, Hct 39.7, Plt Count 296 Assessment And Plan - Current Problems (Diagnosis) (1) Nausea and vomiting Current Visit: Yes Status: Acute Qualifiers: Vomiting type: unspecified Qualified Code(s): R11.2 - Nausea with vomiting, unspecified (2) Postoperative abdominal pain with fever Current Visit: Yes Status: Acute (3) Endometriosis Current Visit: Yes Status: Chronic (4) COVID-19 Current Visit: Yes Status: Acute - Plan Patient's abdominal symptoms improving. No fever. Continue IV meropenem. Advance diet as tolerated. Supportive measures with pain management as needed. IV fluids. Antiemetics as needed. Patient to be seen by Take Out Waiter/Waitress-Dr. Hunt and General surgeryDr. Lloyd.
[2021-08-26] MEDS: NA CHLORIDE 0.9% 1,000 ML IV SCH ×2 (00:37→06:42)
[2021-08-26] MEDS: MORPHINE 4 MG/ML SYR IV PRN ×4 (01:06→21:03)
[2021-08-26] MEDS: PROMETHAZINE INJ 25 MG/ML AMP IV PRN ×4 (01:06→21:06)
[2021-08-26 04:43] LABS: Absolute Lymphocytes (CBC) 1.1 K/uL (0.7-4.9); Hematocrit 34.5 % (36.0-45.0); Lymphocytes % 20.1 % (15.3-44.8); MPV 8.6 fL (7.6-11.3); RBC Red Blood Cell Count 3.83 M/uL (3.86-4.86)
[2021-08-26 05:00] LABS: Albumin 3.6 g/dL (3.4-5.0); Bilirubin Total 0.3 mg/dL (0.2-1.0); Potassium 3.7 mmol/L (3.5-5.1); Protein, Total 6.7 g/dL (6.4-8.2)
[2021-08-26 05:33] LABS: Blood Morphology Comment NOT SEEN (NOT SEEN); Platelet Estimate ADEQ
[2021-08-26] MEDS: ENOXAPARIN 40 MG/0.4 ML SQ SCH (08:57)
[2021-08-26] MEDS: levoFLOXacin 750 MG TAB PO SCH (08:57)
[2021-08-26] MEDS: metroNIDAZOLE 500 MG TABLET PO SCH ×3 (08:57→21:07)
[2021-08-26] MEDS: ONDANSETRON 4 MG (ODT) TAB PO PRN ×2 (10:49→22:13)
--- NOTE | 2021-08-26 14:19 | CON ---
Date of Consultation: 08/26/2021 Diagnoses: Fever, nausea, and COVID positive. History Of Present Illness: This is the case of a female, who comes to us with abdominal pain over t , nausea, and fever. The patient has chronic abdominal pain. For that reason, she had a d iagnostic lap done by Gynecology thinking about the joint structures part of this problem. During th e diagnostic lap by Dr. Hunt, they found also that she has equivocal findings on the appendix and I was called as an intraoperative consultation to remove the appendix. It was successful, uneventfu l. The patient was discharged home. She is on antibiotics. Eventually, the antibiotics were change d as per the patient because she was nauseous and she has a low-grade fever. She came to [facility], readmitted for observation and during this, the patient was found to have be COVID positive and pl aced in isolation. Allergies: PENICILLIN. Past Surgical History: Include appendectomies, endometriosis surgery. Past Medical History: Endometriosis and asthma. Medications: Include Ventolin inhaler, Zyrtec, Benadryl, Cipro, [place], and Flagyl. Family History: Noncontributory. Social History: The patient does not smoke. Does not drink alcohol. Review of Systems: Nausea, vomiting, and weakness. No shortness of breath. No chest pain. No high-grade fever. She h as a low-grade fever in 100. No dysuria, hematuria, hematochezia, melena. No recent traveling out o f the country. No family member sick at home. Ten points otherwise unremarkable. Physical Examination: General: The patient is awake, alert. HEENT: Pupils equal and reactive. Anicteric. Neck: Supple. Chest: Clear. Abdomen: Soft and depressible. Intact surgical site. No guarding or rebound. No peritoneal signs. Extremities: Good capillary refill. Laboratory Data: Blood work shows WBC count of 5.4 with hemoglobin of 12 and platelets of 238 and so dium is 138 and creatinine is 0.64. CAT scan of the abdomen and pelvis was interpreted by Dr. Terence uribe on 08/24/2001 as a right adnexal cystic mass 8 x 5 cm with septation. Apparently, she has an MRI i july that showed similar characteristics with a smaller in size. Dr. Hunt is working on that. Plan: From the surgical standpoint, we can advance the diet. No surgical intervention at least from just General Surgery standpoint, although she has to discuss with Gynecology surgical option she theresa ht have in the future. From [facility], we let the medical doctors control that part of the medical aspec t. If she goes home, we will like to see her in the office in a week. BETTINA/SHANON Voice ID: [id number] Report ID: [id number]
--- NOTE | 2021-08-26 17:26 | P.PN ---
Subjective Date of Service: 08/26/21 Chief Complaint: Nausea, Vomiting, Fever Patient reporting nausea, no vomiting. She states the site of food gives her nausea. She has not tolerated diet advancement today She is also complaining of persistent abdominal pain. Physical Examination - Vital Signs Temperature: 98.1 F Blood Pressure: 119/70 Pulse: 86 Respirations: 18 Pulse Ox (%): 99 - Physical Exam General: Alert, In no apparent distress, Oriented x3 HEENT: Mucous membr. moist/pink Neck: JVD not distended Respiratory: Clear to auscultation bilaterally, Normal air movement Cardiovascular: No edema, Regular rate/rhythm, Normal S1 S2 Gastrointestinal: Normal bowel sounds, Soft and benign, Non-distended Musculoskeletal: No swelling Integumentary: No rashes Neurological: Normal speech, Normal strength at 5/5 x4 extr Assessment And Plan - Current Problems (Diagnosis) (1) Nausea and vomiting Current Visit: Yes Status: Acute Qualifiers: Vomiting type: unspecified Qualified Code(s): R11.2 - Nausea with vomiting, unspecified (2) Postoperative abdominal pain with fever Current Visit: Yes Status: Acute (3) Endometriosis Current Visit: Yes Status: Chronic (4) COVID-19 Current Visit: Yes Status: Acute - Plan No change in abdominal symptoms. No fever. Changed IV meropenem to oral Cipro and Flagyl. Advance diet as tolerated. Supportive measures with pain management as needed. IV fluids. Antiemetics as needed. Patient seen by Dr. Lloyd. He has no further recommendation. Also seen by Dr. Hunt. Awaiting her recommendation regarding her abdominal pain. Anticipate outpatient follow-up for her endometriosis and complex adnexal lesion.
[2021-08-27] MEDS: MORPHINE 4 MG/ML SYR IV PRN ×3 (01:00→11:24)
[2021-08-27] MEDS: ONDANSETRON 4 MG (ODT) TAB PO PRN ×2 (04:30→11:24)
[2021-08-27 04:52] LABS: Absolute Lymphocytes (CBC) 1.3 K/uL (0.7-4.9); Hematocrit 36.8 % (36.0-45.0); Lymphocytes % 29.4 % (15.3-44.8); MPV 8.8 fL (7.6-11.3); RBC Red Blood Cell Count 4.11 M/uL (3.86-4.86)
[2021-08-27 05:10] LABS: Albumin 3.7 g/dL (3.4-5.0); Bilirubin Total 0.3 mg/dL (0.2-1.0); Potassium 3.3 mmol/L (3.5-5.1); Protein, Total 7.1 g/dL (6.4-8.2)
--- NOTE | 2021-08-27 07:35 | P.PN ---
Date of Service: 08/27/21 Subjective: more pelvic pain today / lower abdomen vaginal bleeding this morning, slightly more than typical for her period still needing antiemetics and IV pain meds ROS: 10 point ROS as noted above, otherwise negative Physical exam GEN: Alert, oriented HEENT: Normal conjunctiva, sclera anicteric CV: Regular rate and rhythm, no edema Pulm: Nonlabored respirations on room air ABD: Soft, mild-mod TTP suprapubic region - on right Integumentary: No rashes Neuro: Normal speech, normal affect Problem List Intractable nausea and vomiting Postoperative abdominal pain Endometriosis COVID-19+ felt some improvement yesterday more pelvic pain today, +vaginal bleeding; ~3-4 weeks since period suspect patient is menstruating transition meds to PO, nausea improving still requiring IV pain medication for relief covid 19 asymptomatic nothing more to do from general surgery reviewed case with Dr. Hunt, pain control, will need surgery in future, after heals from this one code: full Dispo: home, possibly tomorrow; once tolerating PO / pain improved Time Spent Managing Pts Care (In Minutes): 35
[2021-08-27] MEDS ORDERED: POTASSIUM CL SA 10 MEQ TAB PO ONE (09:00)
[2021-08-27] MEDS: ENOXAPARIN 40 MG/0.4 ML SQ SCH (09:00)
[2021-08-27] MEDS: metroNIDAZOLE 500 MG TABLET PO SCH ×3 (09:02→21:00)
[2021-08-27] MEDS: TRAMADOL HCL 50 MG TAB PO PRN ×2 (09:03→14:51)
[2021-08-27] MEDS: levoFLOXacin 750 MG TAB PO SCH (09:03)
[2021-08-27 11:46] VITALS: O2SAT 98
[2021-08-27] MEDS: HYDROCODONE/APAP 5/325 MG TAB PO PRN ×2 (17:52→23:58)
[2021-08-27] MEDS ORDERED: FAMOTIDINE 20 MG/2 ML VIAL IV ONE (20:17)
[2021-08-28 05:10] LABS: Potassium 3.6 mmol/L (3.5-5.1)
[2021-08-28] MEDS: HYDROCODONE/APAP 5/325 MG TAB PO PRN (06:00)
[2021-08-28] MEDS: levoFLOXacin 750 MG TAB PO SCH (08:43)
[2021-08-28] MEDS: metroNIDAZOLE 500 MG TABLET PO SCH (08:43)
[2021-08-28] MEDS: ENOXAPARIN 40 MG/0.4 ML SQ SCH ×2 (08:43→08:45)
--- NOTE | 2021-08-28 08:47 | P.DS ---
Admission Date: 08/24/21 Discharge Date: 08/28/21 Disposition: ROUTINE DISCHARGE Discharge Condition: GOOD Reason for Admission: Nausea, Vomiting, Fever Consultations: General Surgery - Dr. Lloyd IT BUSINESS ANALYST - Dr. Hunt Procedures: Problem List Intractable nausea and vomiting secondary to endometriosis Postoperative abdominal pain Endometriosis COVID-19+, asymptomatic Brief History of Present Illness: 31yo F, presented to ED with fever, vomiting, and pain all over. Recently (08/19) underwent diagnostic laparoscopy with endometriosis excision and lap appendectomy without complications. Discharged home with Cipro and flagyl. Patient was concerned about reaction to ciprofloxacin, was instructed by CLINICAL CYTOGENETICS DIRECTOR to stop taking antibiotic and sent new prescription. Patient did not feel well and decided to come to ED at that point. Found to have leukocytosis (15), lactic acidosis (2.0), COVID+. Patient's surgeons were contacted, recommended admission for empiric IV antibiotics and pain control. Hospital Course: Patient was found to have a mild leukocytosis along with her nausea and abdominal pain. CT abdomen/pelvis did not reveal any new or change in findings. She was evaluated by general surgery and CLINICAL CYTOGENETICS DIRECTOR, and was empirically treated with antibiotics and IV fluids. She had gradual improvement of her symptoms. She remained afebrile. IV antibiotics were transitioned to PO levaquin/flagyl. Patient continued to improve, no reaction to levaquin. On day of discharge, she was tolerating PO diet, pain was well controlled with [place]. Discharged home with 7 more days of antibiotics (levaquin and flagyl), norco, and zofran as needed. She has endometriosis and more definitive treatment will require a subsequent surgery as discussed with Dr. Hunt. Patient is to follow up with PCP within 1 week. Follow up with general surgery and CLINICAL CYTOGENETICS DIRECTOR as previously discussed - in ~1 week Patient was COVID+, asymptomatic. Vital Signs/Physical Exam: Temp Pulse Resp BP Pulse Ox 97.0 F 74 14 122/65 97 08/28/21 04:00 08/28/21 04:00 08/28/21 06:00 08/28/21 04:00 08/28/21 06:00 Physical exam GEN: Alert, oriented HEENT: Normal conjunctiva, sclera anicteric CV: Regular rate and rhythm, no edema Pulm: Nonlabored respirations on room air ABD: Soft, minimal TTP suprapubic region - on right Integumentary: No rashes Neuro: Normal speech, normal affect Laboratory Data at Discharge: WBC 4.5 K/uL (4.3-10.9) D 08/27/21 04:18 Hgb 12.8 g/dL (12.0-15.0) 08/27/21 04:18 Hct 36.8 % (36.0-45.0) 08/27/21 04:18 Plt Count 211 K/uL (152-406) 08/27/21 04:18 Sodium 136 mmol/L (136-145) 08/28/21 04:29 Potassium 3.6 mmol/L (3.5-5.1) 08/28/21 04:29 BUN 6 mg/dL (7-18) L 08/28/21 04:29 Creatinine 0.70 mg/dL (0.55-1.3) 08/28/21 04:29 Glucose 102 mg/dL (74-106) 08/28/21 04:29 Phosphorus 2.6 mg/dL (2.5-4.9) 08/25/21 05:40 Magnesium 1.9 mg/dL (1.8-2.4) 08/25/21 05:40 Total Bilirubin 0.3 mg/dL (0.2-1.0) 08/27/21 04:18 AST 46 U/L (15-37) H 08/27/21 04:18 ALT 57 U/L (12-78) 08/27/21 04:18 Alkaline Phosphatase 67 U/L (45-117) 08/27/21 04:18 Lipase 80 U/L (73-393) 08/24/21 18:10 Home Medications: Albuterol Inhaler [Ventolin Inhaler*] 1 puff IH DAILY PRN 08/14/21 Cetirizine HCl [Zyrtec] 1 tab PO DAILY 08/14/21 Hydrocodone 5/APAP 325 [[place] 5/325*] 1 tab PO Q8H PRN #20 tab 08/28/21 Ondansetron [Zofran (Odt)*] 4 mg PO Q8H PRN #20 tab 08/28/21 levoFLOXacin [Levaquin*] 750 mg PO DAILY 7 Days #7 tab 08/28/21 metroNIDAZOLE [Flagyl*] 500 mg PO TID 7 Days #21 tablet 08/28/21 New Medications: metroNIDAZOLE [Flagyl*] 500 mg PO TID 7 Days #21 tablet levoFLOXacin [Levaquin*] 750 mg PO DAILY 7 Days #7 tab Hydrocodone 5/APAP 325 [[place] 5/325*] 1 tab PO Q8H PRN #20 tab PRN Reason: Pain Scale 5-7 (Moderate) Ondansetron [Zofran (Odt)*] 4 mg PO Q8H PRN #20 tab PRN Reason: Nausea / Vomiting Diet: Regular Activity: Ad leida Followup: Yennifer Hunt MD [ACTIVE - CAN ADMIT] - (Call to schedule appointment in 1 week ) David Lloyd MD [ACTIVE - CAN ADMIT] - (Call to schedule appointment in 1 week) Time spent managing pt's care (in minutes): 45
[2021-08-28 09:00] VITALS: BP 107/76; TEMP 97.8
[2021-08-28] MEDS ORDERED: POTASSIUM CL SA 10 MEQ TAB PO ONE (09:00)
== END 2021-08-28 09:10 | disposition home or self-care (01) | DRG 760 ==
LOC: ER 16:48 → ERHOLD 22:43 → 2ND 08-25 00:25
PROVIDERS: ADMIT Internal Medicine; ATTEND Internal Medicine
DX: N80.2 Endometriosis of fallopian tube (principal); U07.1 COVID-19; E87.2 Acidosis; N80.1 Endometriosis of ovary; R10.9 Unspecified abdominal pain; R11.2 Nausea with vomiting, unspecified; Z88.0 Allergy status to penicillin
CPT/HCPCS: 36415; 71045; 74177; 80048; 80053; 81003; 81015; 81025; 82550; 83605; 83690; 83735; 84100; 84132; 84145; 85025; 87040; 94640; 96361; 96365; 96366; 96375; 99285; J1650; J2185; J2270; J2405; J2550; J3010; J3490; J7030; Q9967; U0003

== ENCOUNTER 2022-06-24 16:29 | Emergency (ER) | payer OTHER ==
[2022-06-24] MEDS ORDERED: KETOROLAC 30 MG/ML INJ ONE (17:30)
--- NOTE | 2022-06-24 17:39 | RAD REPORT ---
EXAM DESCRIPTION: RAD - Ankle Right 3 View - 06/24/2022 5:28 pm CLINICAL HISTORY: Pain;Swelling COMPARISON: <Comparisons> FINDINGS: Small calcaneal spurs are present. No acute fracture or dislocation is seen.
--- NOTE | 2022-06-24 17:39 | RAD REPORT ---
EXAM DESCRIPTION: RAD - Foot Right 3 View - 06/24/2022 5:28 pm CLINICAL HISTORY: Pain;Swelling COMPARISON: <Comparisons> FINDINGS: No acute fracture or dislocation seen. Small calcaneal spurs.
--- NOTE | 2022-06-24 17:50 | EDPHYS ---
Physician Documentation [facility] Name: Jennifer Pimentel Age: 31 yrs Sex: Female : 1990 Arrival Date: 06/24/2022 Time: 16:32 Bed 24 Private MD: ED Physician Andres Hughes HPI: 06/24 16:49 This 31 yrs old Female presents to ER via Unassigned with complaints of Ankle Injury. snw 16:49 The patient presents with an injury, swelling, tenderness. The complaints affect the snw right ankle. Onset: The symptoms/episode began/occurred 4 week(s) ago, and became persistent. Context: The problem was sustained outdoors, resulted from the patient tripping, on a curb, The mechanism of injury involved inversion of the affected ankle. The patient can partially bear weight on the affected extremity. the patient is able to ambulate. Associated signs and symptoms: Pertinent positives: swelling, tenderness. Severity of symptoms: At their worst the symptoms were mild, moderate, in the emergency department the symptoms are unchanged. The patient has not experienced similar symptoms in the past. The patient has not recently seen a physician. LICENSE DISTRIBUTOR: 17:28 LMP N/A - Depo-provera tw5 Historical: - Allergies: 17:28 PENICILLINS; tw5 17:28 Cipro; tw5 - PMHx: 17:28 Asthma; Endometrosis; tw5 - Immunization history:: Pneumococcal vaccine is up to date. - Social history:: Smoking status: Patient denies any tobacco usage or history of. ROS: 16:48 Constitutional: Negative for fever, chills, and weight loss, Eyes: Negative for injury, snw pain, redness, and discharge, ENT: Negative for injury, pain, and discharge, Neck: Negative for injury, pain, and swelling, Cardiovascular: Negative for chest pain, palpitations, and edema, Respiratory: Negative for shortness of breath, cough, wheezing, and pleuritic chest pain, Abdomen/GI: Negative for abdominal pain, nausea, vomiting, diarrhea, and constipation, Back: Negative for injury and pain, : Negative for injury, bleeding, discharge, and swelling, Skin: Negative for injury, rash, and discoloration, Neuro: Negative for headache, weakness, numbness, tingling, and seizure, Psych: Negative for depression, anxiety, suicide ideation, homicidal ideation, and hallucinations. 16:48 MS/extremity: Positive for injury or acute deformity, pain, swelling, tenderness, of the right lateral malleolus and lateral side of right foot. Exam: 16:47 Constitutional: This is a well developed, well nourished patient who is awake, alert, snw and in no acute distress. Head/Face: Normocephalic, atraumatic. Eyes: Pupils equal round and reactive to light, extra-ocular motions intact. Lids and lashes normal. Conjunctiva and sclera are non-icteric and not injected. Cornea within normal limits. Periorbital areas with no swelling, redness, or edema. ENT: Nares patent. No nasal discharge, no septal abnormalities noted. Tympanic membranes are normal and external auditory canals are clear. Oropharynx with no redness, swelling, or masses, exudates, or evidence of obstruction, uvula midline. Mucous membranes moist. Neck: Trachea midline, no thyromegaly or masses palpated, and no cervical lymphadenopathy. Supple, full range of motion without nuchal rigidity, or vertebral point tenderness. No Meningismus. Chest/axilla: Normal chest wall appearance and motion. Nontender with no deformity. No lesions are appreciated. Cardiovascular: Regular rate and rhythm with a normal S1 and S2. No gallops, murmurs, or rubs. Normal PMI, no JVD. No pulse deficits. Respiratory: Lungs have equal breath sounds bilaterally, clear to auscultation and percussion. No rales, rhonchi or wheezes noted. No increased work of breathing, no retractions or nasal flaring. Abdomen/GI: Soft, non-tender, with normal bowel sounds. No distension or tympany. No guarding or rebound. No evidence of tenderness throughout. Back: No spinal tenderness. No costovertebral tenderness. Full range of motion. Skin: Warm, dry with normal turgor. Normal color with no rashes, no lesions, and no evidence of cellulitis. Neuro: Awake and alert, GCS 15, oriented to person, place, time, and situation. Cranial nerves II-XII grossly intact. Motor strength 5/5 in all extremities. Sensory grossly intact. Cerebellar exam normal. Normal gait. Psych: Awake, alert, with orientation to person, place and time. Behavior, mood, and affect are within normal limits. 16:47 Musculoskeletal/extremity: Extremities: grossly normal except: noted in the lateral side of right foot and right lateral malleolus: swelling, tenderness, Circulation is intact in all extremities. Sensation intact. Weight bearing: able to fully bear weight. Vital Signs: 17:28 BP 101 / 73; Pulse 78; Resp 18; Temp 98.3; Pulse Ox 100% ; Weight 112.49 kg; Height 5 tw5 ft. 11 in. ; Pain 10/10; 17:34 BP 101 / 73; Pulse 80; Resp 18; Pulse Ox 100% on R/A; Pain 10/10; tw5 17:28 Body Mass Index 34.59 (112.49 kg, 180.34 cm) tw5 17:28 Pain Scale: Adult tw5 17:34 Pain Scale: Adult tw5 MDM: 16:37 Patient medically screened. snw 17:50 Differential diagnosis: fracture, sprain, arthritis. Data reviewed: vital signs, nurses snw notes. I considered the following discharge prescriptions or medication management in the emergency department Medications were administered in the Emergency Department. See MAR. Counseling: I had a detailed discussion with the patient and/or guardian regarding: the historical points, exam findings, and any diagnostic results supporting the discharge/admit diagnosis, radiology results, the need for outpatient follow up, to return to the emergency department if symptoms worsen or persist or if there are any questions or concerns that arise at home. Special discussion: Based on the history and exam findings, there is no indication for further emergent testing or inpatient evaluation. I discussed with the patient/guardian the need to see the orthopedic surgeon for further evaluation of the symptoms. I discussed with the patient/guardian the need to see the renewal specialist for further evaluation of the symptoms. I discussed with the patient/guardian the need to see the primary care provider for further evaluation of the symptoms. 06/24 16:37 Order name: Ankle Right 3 View XRAY; Complete Time: 17:48 snw 06/24 16:37 Order name: Foot Right 3 View XRAY; Complete Time: 17:48 snw Administered Medications: 17:40 Drug: Ketorolac IM 30 mg Route: IM; Site: right ventrogluteal; tw5 17:59 Follow up: Response: No adverse reaction tw5 Disposition Summary: 06/24/22 17:49 Discharge Ordered Location: Home snw Condition: Stable snw Diagnosis - Calcaneal spur, right foot snw Followup: snw - With: Emergency Department - When: As needed - Reason: Worsening of condition Followup: snw - With: Private Physician - When: 5 - 6 days - Reason: Recheck today's complaints, Continuance of care, Re-evaluation by your physician Discharge Instructions: - Discharge Summary Sheet snw - Ankle Sprain snw - Heel Spur snw Forms: - Medication Reconciliation Form snw - Thank You Letter snw - Antibiotic Education snw - Prescription Opioid Use snw Prescriptions: - Mobic 7.5 mg Oral Tablet - take 1 tablet by ORAL route once daily take with food; 20 tablet; Refills: 0, snw Product Selection Permitted Signatures: Dispatcher [employer] EDSoledad Cuevas FNP-C FNP-Raffaelew Khushbu Flores tw5
--- NOTE | 2022-06-24 17:50 | ER ---
Nurse's Notes [facility] Name: Jennifer Pimentel Age: 31 yrs Sex: Female : 1990 Arrival Date: 06/24/2022 Time: 16:32 Bed 24 Private MD: Diagnosis: Calcaneal spur, right foot Presentation: 06/24 17:28 Chief complaint: Patient states: " A couple of months ago I was playing with my dog and tw5 I slipped and rolled my ankle. I thought it was going to heal on its own, but it has only gotten worse not better. The pain is now unbearable.". Coronavirus screen: Vaccine status: Patient reports being unvaccinated. Ebola Screen: Patient negative for fever greater than or equal to 101.5 degrees Fahrenheit, and additional compatible Ebola Virus Disease symptoms Patient denies exposure to infectious person. Patient denies travel to an Ebola-affected area in the 21 days before illness onset. Initial Sepsis Screen: Does the patient meet any 2 criteria? No. Patient's initial sepsis screen is negative. Does the patient have a suspected source of infection? No. Patient's initial sepsis screen is negative. Risk Assessment: Do you want to hurt yourself or someone else? Patient reports no desire to harm self or others. Onset of symptoms is unknown. 17:28 Acuity: GARETH 4 tw5 17:28 Method Of Arrival: Wheelchair tw5 Triage Assessment: 17:28 General: Appears in no apparent distress. Behavior is calm, cooperative, appropriate tw5 for age. Pain: Complains of pain in right foot Pain radiates to lateral aspect of right calf and right ankle Pain currently is 10 out of 10 on a pain scale. Pain: Quality of pain is described as burning. Neuro: Level of Consciousness is awake, alert, obeys commands. Musculoskeletal: Range of motion: intact in all extremities. RN PARALEGAL: 17:28 LMP N/A - Depo-provera tw5 Historical: - Allergies: 17:28 PENICILLINS; tw5 17:28 Cipro; tw5 - PMHx: 17:28 Asthma; Endometrosis; tw5 - Immunization history:: Pneumococcal vaccine is up to date. - Social history:: Smoking status: Patient denies any tobacco usage or history of. Screenin:34 [facility] ED Fall Risk Assessment (Adult) History of falling in the last 3 months, tw5 including since admission No falls in past 3 months (0 pts). Abuse screen: Denies threats or abuse. Denies injuries from another. Nutritional screening: No deficits noted. Tuberculosis screening: No symptoms or risk factors identified. Assessment: 17:34 General: Reports "It feels like a burning sensation and it travels up my leg. Neuro: tw5 Level of Consciousness is awake, alert, obeys commands, Oriented to person, place, time, situation. Respiratory: Airway is patent Trachea midline Respiratory effort is even, unlabored. Vital Signs: 17:28 BP 101 / 73; Pulse 78; Resp 18; Temp 98.3; Pulse Ox 100% ; Weight 112.49 kg; Height 5 tw5 ft. 11 in. ; Pain 10/10; 17:34 BP 101 / 73; Pulse 80; Resp 18; Pulse Ox 100% on R/A; Pain 10/10; tw5 17:28 Body Mass Index 34.59 (112.49 kg, 180.34 cm) tw5 17:28 Pain Scale: Adult tw5 17:34 Pain Scale: Adult tw5 ED Course: 16:32 Patient arrived in ED. mr 16:33 Soledad Kim, [facility] snw 16:33 Andres Hughes MD is Attending Physician. snw 17:21 Khushbu Flores is Primary Nurse. tw5 17:28 Arm band placed on. tw5 17:29 Ankle Right 3 View XRAY In Process Unspecified. EDMS 17:29 Foot Right 3 View XRAY In Process Unspecified. EDMS 17:31 Triage completed. tw5 17:34 Placed in gown. Bed in low position. Call light in reach. Side rails up X 1. Client tw5 placed on continuous cardiac and pulse oximetry monitoring. NIBP monitoring applied. Door closed. Noise minimized. Lights dimmed. Warm blanket given. 17:34 No provider procedures requiring assistance completed. Patient did not have IV access tw5 during this emergency room visit. Administered Medications: 17:40 Drug: Ketorolac IM 30 mg Route: IM; Site: right ventrogluteal; tw5 17:59 Follow up: Response: No adverse reaction tw5 Medication: 17:34 VIS not applicable for this client. tw5 Outcome: 17:49 Discharge ordered by MD. snw 18:07 Discharged to home ambulatory. tw5 18:07 Condition: improved 18:07 Discharge instructions given to patient, Instructed on discharge instructions, follow up and referral plans. medication usage, Demonstrated understanding of instructions, follow-up care, medications, Prescriptions given X 1. 18:07 Patient left the ED. tw5 Signatures: Dispatcher [employer] EDMS Soledad Kim, KARISSA NAVARRO-Jolie Matute mr FloresKhushbu tw5
[2022-06-24 18:18] VITALS: BP 101/73; TEMP 98.3; O2SAT 100
== END 2022-06-24 18:07 | disposition home or self-care (01) ==
LOC: ER 16:29
DX: M77.31 Calcaneal spur, right foot (principal)
CPT/HCPCS: 96372; 99283

== ENCOUNTER 2023-01-22 16:51 | Emergency (ER) | payer OTHER ==
[2023-01-22] MEDS ORDERED: NA CHLORIDE 0.9% 1,000 ML ONE (17:32)
[2023-01-22 18:12] LABS: Absolute Lymphocytes (CBC) 3.1 K/uL (0.7-4.9); Hematocrit 39.5 % (36.0-45.0); Lymphocytes % 24.7 % (15.3-44.8); MCV 87.4 fL (80-100); MPV 8.6 fL (7.6-11.3); Platelets 311 thou/uL (152-406); RBC Red Blood Cell Count 4.52 M/uL (3.86-4.86)
[2023-01-22 18:16] LABS: Specific Gravity > 1.030 (1.005-1.030); Urine Bacteria None Seen /HPF (<20); Urine Bilirubin NEGATIVE (Negative); Urine Blood 3+ (Negative); Urine Clarity Clear (Clear); Urine Color Light-Yellow (Yellow); Urine Glucose NEGATIVE (Negative); Urine Mucus Slight /HPF (None Seen); Urine Protein TRACE (Negative); Urine RBC 21-50 /HPF (None Seen); Urine Urobilinogen Normal (Normal); Urine pH 5.5 (5.0-7.0)
[2023-01-22 18:19] LABS: Specific Gravity > 1.030 (1.005-1.030)
[2023-01-22] MEDS ORDERED: KETOROLAC 30 MG/ML INJ ONE (18:22)
[2023-01-22 18:29] LABS: Bilirubin Total 0.6 mg/dL (0.2-1.0); Potassium 3.5 mEq/L (3.5-5.1); Protein, Total 7.9 g/dL (6.4-8.2)
[2023-01-22] MEDS ORDERED: ONDANSETRON 4 MG/2 ML VIAL ONE (18:30)
--- NOTE | 2023-01-22 20:09 | RAD REPORT ---
EXAM DESCRIPTION: CT - Abdomen Pelvis W Contrast - 01/22/2023 7:00 pm CLINICAL HISTORY: ABD PAIN COMPARISON: Abdomen Pelvis W Contrast dated 08/24/2021 TECHNIQUE: Thin cut axial CT imaging of the abdomen and pelvis was performed following intravenous a dministration of 100 mL Isovue 300. Multiplanar reformats were generated and reviewed. All CT scans are performed using dose optimization technique as appropriate and may include automated exposure control or mA/KV adjustment according to patient size. FINDINGS: No suspicious findings in the lung bases. The liver, spleen, adrenal glands, and pancreas show no suspicious findings. Gallbladder and biliary tree are also without suspicious finding. Symmetric renal function is seen with no hydronephrosis or suspicious renal mass. No dilated bowel loops or bowel wall thickening. No free air, free fluid or inflammatory stranding. N o hernia, mass or bulky lymphadenopathy. Bulky uterus with multiple ill-defined fibroids. Bulky appea teresa of the right ovary, with suggestion of multiple cystic lesions, the largest measuring 2.5 cm. S tatus post appendicectomy. The urinary bladder is without significant finding. No suspicious bony findings. IMPRESSION: No acute intra-abdominal process. Bulky uterus with multiple ill-defined fibroids. Bulky appearance of the right ovary with suggestion of multiple cystic lesions, favored be physiologi c, but not well evaluated on CT. If patient's symptoms are felt to be of adnexal origin, these can be further evaluated by dedicated pelvic ultrasound.
--- NOTE | 2023-01-22 20:29 | ER ---
Nurse's Notes [facility] Name: Jennifer Pimentel Age: 32 yrs Sex: Female : 1990 Arrival Date: 01/22/2023 Time: 16:51 Bed 20 Private MD: Diagnosis: Other and unspecified ovarian cysts Presentation: 01/22 16:58 Chief complaint: Patient states: right lower back pain x 3 weeks ago now radiating to aa5 RLQ. Pt states "I am on the Depo shot due to the endometriosis but have some vaginal bleeding for 2 days which is abnormal for me". Pt also reports vomiting, body aches, and decreased urination. Coronavirus screen: vomiting. Ebola Screen: Patient denies travel to an Ebola-affected area in the 21 days before illness onset. Initial Sepsis Screen: Does the patient meet any 2 criteria? No. Patient's initial sepsis screen is negative. Does the patient have a suspected source of infection? No. Patient's initial sepsis screen is negative. Risk Assessment: Do you want to hurt yourself or someone else? Patient reports no desire to harm self or others. Onset of symptoms was January 2023. 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 - Social history:: Smoking status: unknown. Screenin:29 [facility] ED Fall Risk Assessment (Adult) History of falling in the last 3 months, ph including since admission No falls in past 3 months (0 pts) Confusion or Disorientation No (0 pts) Intoxicated or Sedated No (0 pts) Impaired Gait No (0 pts) Mobility Assist Device Used No (0 pt) Altered Elimination No (0 pt) Score/Fall Risk Level 0 - 2 = Low Risk Oriented to surroundings, Maintained a safe environment, Provided non-skid footwear, Hourly rounding (assess needs \\T\\ fall precautionary measures) done. Abuse screen: Denies threats or abuse. Denies injuries from another. Nutritional screening: No deficits noted. Tuberculosis screening: No symptoms or risk factors identified. Assessment: 18:28 General: Appears in no apparent distress. comfortable, Behavior is calm, cooperative, ph appropriate for age. Pain: Complains of pain in posterior aspect of right lateral abdomen, anterior aspect of right lateral abdomen and right lower quadrant. Neuro: Level of Consciousness is awake, alert, obeys commands, Oriented to person, place, time, situation. Cardiovascular: Capillary refill < 3 seconds in bilateral fingers Patient's skin is warm and dry. Respiratory: Airway is patent Respiratory effort is even, unlabored, Respiratory pattern is regular, symmetrical. GI: Abd is soft X 4 quads Reports lower abdominal pain, nausea, vomiting. : Reports pain in right flank(s), lower quadrant(s) in lower back. Derm: Skin is pink, warm \\T\\ dry. Musculoskeletal: Circulation, motion, and sensation intact. Range of motion: intact in all extremities. 19:00 Reassessment: Patient appears in no apparent distress at this time. Patient and/or jb4 family updated on plan of care and expected duration. Pain level reassessed. Patient is alert, oriented x 3, equal unlabored respirations, skin warm/dry/pink. 20:12 Reassessment: Patient appears in no apparent distress at this time. Patient and/or jb4 family updated on plan of care and expected duration. Pain level reassessed. Patient is alert, oriented x 3, equal unlabored respirations, skin warm/dry/pink. Vital Signs: 16:58 BP 139 / 91; Pulse 89; Resp 18 S; Temp 97.3(TE); Pulse Ox 99% on R/A; Weight 113.4 kg aa5 (R); Height 5 ft. 11 in. (R); 18:30 BP 132 / 78; Pulse 87; Resp 18; Pulse Ox 98% on R/A; ph 20:00 BP 135 / 90; Pulse 74; Resp 16; Pulse Ox 100% on R/A; jb4 16:58 Body Mass Index 34.87 (113.40 kg, 180.34 cm) aa5 ED Course: 16:54 Patient arrived in ED. mg5 16:55 [facility] sb4 16:55 Dania Collado MD is Attending Physician. sb4 16:57 Arm band placed on. aa5 17:01 Triage completed. aa5 17:14 Laly Mcpherson, RN is Primary Nurse. ph 18:05 CBC with Diff Sent. ph 18:05 CMP Sent. ph 18:05 Lipase Sent. ph 18:05 Test, Urine Sent. ph 18:29 Patient has correct armband on for positive identification. Bed in low position. Call ph light in reach. Side rails up X 1. Pulse ox on. NIBP on. Door closed. Noise minimized. Warm blanket given. 18:30 Inserted saline lock: 22 gauge in right antecubital area, using aseptic technique. ph Blood collected. 19:02 CT Abd/Pelvis - IV Contrast Only In Process Unspecified. EDMS 20:53 No provider procedures requiring assistance completed. IV discontinued, intact, jb4 bleeding controlled, No redness/swelling at site. Pressure dressing applied. Administered Medications: 18:05 Drug: NS 0.9% IV 1000 ml IV at 1 bolus Per protocol; 1000 mL bolus Route: IV; Rate: 1 ph bolus; Site: right antecubital; 18:27 Drug: Ketorolac IVP 15 mg IVP once Route: IVP; Site: right antecubital; ph 18:27 Follow up: Response: No adverse reaction ph Medication: 18:29 VIS not applicable for this client. ph Outcome: 20:29 Discharge ordered by . sb4 20:53 Discharged to home ambulatory, jb4 20:53 Condition: stable 20:53 Discharge instructions given to patient, Instructed on discharge instructions, follow up and referral plans. medication usage, Demonstrated understanding of instructions, follow-up care, medications, Prescriptions given X 1, 20:54 Patient left the ED. jb4 Signatures: Dispatcher [employer] EDMS Selene Patel RN DOMO aa5 Laly Mcpherson, RN RN Pop Mendoza RN RN melina4 Rosario Kumar PA-C PAPedro Pabol sb4 Venus Umaña mg5
--- NOTE | 2023-01-22 20:29 | EDPHYS ---
Physician Documentation [facility] Name: Jennifer Pimentel Age: 32 yrs Sex: Female : 1990 Arrival Date: 01/22/2023 Time: 16:51 Bed 20 Private MD: ED Physician Dania Collado HPI: 01/22 17:04 This 32 yrs old Female presents to ER via Ambulatory with complaints of Low Back Pain, sb4 Abdominal Pain, Vomiting, Dehydrated. 17:04 patient states that she started experiencing right lower back pain about 3 weeks ago sb4 that radiates to her RLQ. a few days ago she started experiencing nausea, vomiting, chills, intermittent dysuria, and feeling like she is not urinating as often as she typically does despite drinking a lot of water. she also reports some vaginal bleeding, which would be her first menstrual cycle in over a year. 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 - Social history:: Smoking status: unknown. ROS: 17:04 Cardiovascular: Negative for chest pain, palpitations, and edema, sb4 17:04 Constitutional: Positive for chills, 17:04 Abdomen/GI: Positive for abdominal pain, nausea and vomiting, 17:04 Back: Positive for flank pain, on the right, 17:04 : Positive for burning with urination, vaginal bleeding, menstrual abnormality, 17:04 All other systems are negative, Exam: 17:04 Constitutional: This is a well developed, well nourished patient who is awake, alert, sb4 and in no acute distress. Head/Face: Normocephalic, atraumatic. Eyes: Extra-ocular motions intact. Periorbital areas with no swelling, redness, or edema. ENT: Mucous membranes moist. Cardiovascular: Regular rate and rhythm with a normal S1 and S2. Respiratory: Lungs have equal breath sounds bilaterally, clear to auscultation and percussion. No rales, rhonchi or wheezes noted. No increased work of breathing, no retractions or nasal flaring. Abdomen/GI: Soft, non-tender, no distension. Skin: Warm, dry with normal turgor. Normal color with no rashes, no lesions, and no evidence of cellulitis. MS/ Extremity: Pulses equal, no cyanosis. Neurovascular intact. Full, normal range of motion. Neuro: Awake and alert, GCS 15, oriented to person, place, time, and situation. Motor strength 5/5 in all extremities. Sensory grossly intact. Vital Signs: 16:58 BP 139 / 91; Pulse 89; Resp 18 S; Temp 97.3(TE); Pulse Ox 99% on R/A; Weight 113.4 kg aa5 (R); Height 5 ft. 11 in. (R); 18:30 BP 132 / 78; Pulse 87; Resp 18; Pulse Ox 98% on R/A; ph 20:00 BP 135 / 90; Pulse 74; Resp 16; Pulse Ox 100% on R/A; jb4 16:58 Body Mass Index 34.87 (113.40 kg, 180.34 cm) aa5 MDM: 16:57 Patient medically screened. sb4 17:04 Differential diagnosis: UTI, nephrolithiasis, ureterolithiasis, pyelonephritis, ovarian sb4 cyst, dysmenorrhea, ectopic . 20:28 Data reviewed: vital signs, nurses notes, lab test result(s), radiologic studies, and sb4 as a result, I will discharge patient. Consideration of Admission/Observation Escalation of care including admission/observation considered. Historians other than the Patient: Spouse/Significant Other: . Counseling: I had a detailed discussion with the patient and/or guardian regarding the historical points, exam findings, and any diagnostic results supporting the discharge/admit diagnosis, lab results, radiology results, the need for outpatient follow up, an OB/Gyne specialist, to return to the emergency department if symptoms worsen or persist or if there are any questions or concerns that arise at home. 01/22 17:01 Order name: CBC with Diff; Complete Time: 18:16 sb4 01/22 17: Order name: CMP; Complete Time: 18:32 sb4 01/22 17: Order name: Lipase; Complete Time: 18:32 sb4 01/22 17: Order name: Test, Urine; Complete Time: 18:22 sb4 01/22 17:01 Order name: UAM; Complete Time: 18:22 sb4 01/22 17:01 Order name: CT Abd/Pelvis - IV Contrast Only; Complete Time: 20:17 sb4 01/22 17:01 Order name: IV Saline Lock; Complete Time: 18:05 sb4 01/22 17:01 Order name: Labs collected and sent; Complete Time: 18:05 sb4 Administered Medications: 18:05 Drug: NS 0.9% IV 1000 ml IV at 1 bolus Per protocol; 1000 mL bolus Route: IV; Rate: 1 ph bolus; Site: right antecubital; 18:27 Drug: Ketorolac IVP 15 mg IVP once Route: IVP; Site: right antecubital; ph 18:27 Follow up: Response: No adverse reaction ph Disposition Summary: 01/22/23 20:29 Discharge Ordered Notes: Location: Home sb4 Problem: an ongoing problem sb4 Symptoms: have improved sb4 Condition: Stable sb4 Diagnosis - Other and unspecified ovarian cysts sb4 Followup: sb4 - With: Private Physician - When: 2 - 3 days - Reason: Further diagnostic work-up, Recheck today's complaints, Re-evaluation by your physician Discharge Instructions: - Discharge Summary Sheet sb4 - Ovarian Cyst, [id number] sb4 Forms: - Work release form sb4 - Medication Reconciliation Form sb4 - Thank You Letter sb4 - Antibiotic Education sb4 - Prescription Opioid Use sb4 - Patient Portal Instructions sb4 - Leadership Thank You Letter sb4 Prescriptions: - Zofran 4 mg Oral Tablet - take 1 tablet ORAL route every 12 hours As needed; 20 tablet; Refills: 0, sb4 Product Selection Permitted Signatures: Dispatcher [employer] Selene Jain RN RN Laly Gallagher RN RN Rosario Correa PA-C PA-C sb4
[2023-01-22 21:17] VITALS: TEMP 97.3
[2023-01-22 21:20] VITALS: BP 135/90; O2SAT 100
== END 2023-01-22 20:54 | disposition home or self-care (01) ==
LOC: ER 16:51
DX: N83.291 Other ovarian cyst, right side (principal); Z88.0 Allergy status to penicillin; Z88.1 Allergy status to other antibiotic agents
CPT/HCPCS: 85025; 81001; 36415; 81025; 83690; 80053; 74177; 96374; 99284; Q9967; J2405; J7030

== ENCOUNTER → 2023-05-28 | Emergency (ER) | payer OTHER ==
--- NOTE | 2023-05-28 17:11 | RAD REPORT ---
EXAM DESCRIPTION: RAD - Chest Pa And Lat (2 Views) - 05/28/2023 4:54 pm CLINICAL HISTORY: Chest pain;Dyspnea COMPARISON: Chest Single View dated 08/24/2021 TECHNIQUE: PA and lateral views of the chest were obtained. FINDINGS: The lungs are clear. Heart size is normal and central vasculature is within normal limits. No pleural effusion or pneumothorax seen. No acute bony finding noted. IMPRESSION: No acute cardiopulmonary process.
--- NOTE | 2023-05-28 17:45 | EDPHYS ---
Physician Documentation [facility] Name: Jennifer Pimentel Age: 32 yrs Sex: Female : 1990 Arrival Date: 05/28/2023 Time: 16:24 Bed DX4 Private MD: ED Physician Andres Hughes HPI: 05/28 17:00 This 32 yrs old Female presents to ER via Ambulatory with complaints of shoulder pain. rn 17:01 The patient or guardian complains of decreased range of motion, pain. left shoulder. rn Onset: The symptoms/episode began/occurred 2 day(s) ago. Modifying factors: the symptoms are alleviated by remaining still, The symptoms are aggravated by rotation of arm. Associated signs and symptoms: Pertinent negatives: abdominal pain, chest pain, tingling. Severity of symptoms: At their worst the symptoms were moderate, in the emergency department the symptoms are unchanged. The patient has experienced similar episodes in the past. Patient reports left shoulder pain, worse with range of motion, improved with rest and remaining still. 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 No fall or direct trauma. Patient reports radiation to the neck. No weakness or numbness.. Historical: - Allergies: 16:43 Cipro; tl4 16:43 PENICILLINS; tl4 - Home Meds: 16:43 Depo-Provera IM [Active]; tl4 - PMHx: 16:43 Asthma; Endometrosis; tl4 - PSHx: 16:43 Appendectomy; left ovary and left fallopian tube removed.; tl4 - Immunization history:: Adult Immunizations unknown. - Social history:: Smoking status: Patient denies any tobacco usage or history of. - Family history:: not pertinent. - Hospitalizations: : No recent hospitalization is reported. ROS: 17:01 Constitutional: Negative for fever, chills, and weight loss, Neck: Negative for injury, rn and swelling, Cardiovascular: Negative for chest pain, palpitations, and edema, Respiratory: Negative for shortness of breath, cough, wheezing, and pleuritic chest pain, Abdomen/GI: Negative for abdominal pain, nausea, vomiting, diarrhea, and constipation, Back: Negative for injury and pain, MS/Extremity: Positive for left shoulder injury and pain Skin: Negative for injury, rash, and discoloration, Neuro: Negative for headache, weakness, numbness, tingling, and seizure, Exam: 17:05 Constitutional: This is a well developed, well nourished patient who is awake, alert, rn and in no acute distress. Head/Face: Normocephalic, atraumatic. Neck: No midline cervical tenderness Cardiovascular: Regular rate and rhythm. No pulse deficits. Respiratory: No increased work of breathing, no retractions or nasal flaring. Neuro: Awake and alert, GCS 15 Vital Signs: 16:39 BP 126 / 93; Pulse 74; Resp 18; Temp 98.2(O); Pulse Ox 99% on R/A; Weight 123.38 kg; tl4 Height 5 ft. 10 in. ; Pain 10/10; 17:59 BP 128 / 78; Pulse 89; Resp 16; Temp 97.2; Pulse Ox 98% on R/A; iw 16:39 Body Mass Index 39.03 (123.38 kg, 177.8 cm) tl4 16:39 Pain Scale: Adult tl4 MDM: 16:43 Patient medically screened. rn 17:43 Differential diagnosis: tendonitis. Data reviewed: vital signs, nurses notes, rn radiologic studies, plain films, and as a result, I will discharge patient. Counseling: I had a detailed discussion with the patient and/or guardian regarding the historical points, exam findings, and any diagnostic results supporting the discharge/admit diagnosis, radiology results, the need for outpatient follow up, to return to the emergency department if symptoms worsen or persist or if there are any questions or concerns that arise at home. Special discussion: I discussed with the patient/guardian in detail that at this point there is no indication for admission to the hospital. It is understood, however, that if the symptoms persist or worsen the patient needs to return immediately for re-evaluation. Further emergent ED testing is not indicated at this point in time. I discussed with the patient/guardian in detail the need to arrange with the PCP or specialist further outpatient testing, MRI, Based on the history and exam findings, there is no indication for further emergent testing or inpatient evaluation. I discussed with the patient/guardian the need to see the orthopedic surgeon for further evaluation of the symptoms. 05/28 16:43 Order name: XRAY Chest Pa And Lat (2 Views); Complete Time: 17:30 rn 05/28 16:43 Order name: EKG; Complete Time: 16:43 rn 05/28 16:43 Order name: EKG - Nurse/Tech; Complete Time: 17:42 rn 05/28 17:45 Order name: Sling; Complete Time: 17:59 rn Administered Medications: No medications were administered Disposition Summary: 05/28/23 17:45 Discharge Ordered Notes: Location: Home rn Problem: new rn Symptoms: have improved rn Condition: Stable rn Diagnosis - Rotator cuff tendinitis rn Followup: rn - With: Private Physician - When: As needed - Reason: Recheck today's complaints, Re-evaluation by your physician Discharge Instructions: - Discharge Summary Sheet rn - Rotator Cuff Tendinitis rn Forms: - Medication Reconciliation Form rn - Thank You Letter rn - 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
--- NOTE | 2023-05-28 17:45 | ER ---
Nurse's Notes [facility] Name: Jennifer Pimentel Age: 32 yrs Sex: Female : 1990 Arrival Date: 05/28/2023 Time: 16:24 Bed DX4 Private MD: Diagnosis: Rotator cuff tendinitis Presentation: 05/28 16:39 Chief complaint: Patient states: Pt c/o ongoing left shoulder pain after injuring it 1 tl4 year ago. Pt states it is being aggravated at work. Pt also c/o ongoing chest pain, SOB, and dizziness x at least 1 month after being sick with covid like sxs. Coronavirus screen: At this time, the client does not indicate any symptoms associated with coronavirus-19. Ebola Screen: No symptoms or risks identified at this time. Initial Sepsis Screen: Does the patient meet any 2 criteria? No. Patient's initial sepsis screen is negative. Does the patient have a suspected source of infection? No. Patient's initial sepsis screen is negative. Risk Assessment: Do you want to hurt yourself or someone else? Patient reports no desire to harm self or others. Onset of symptoms was April 2023. 16:39 Method Of Arrival: Ambulatory tl4 16:39 Acuity: GARETH 3 tl4 Triage Assessment: 16:43 General: Appears in no apparent distress. Behavior is calm, cooperative. Pain: tl4 Complains of pain in chest and left arm. EENT: No deficits noted. No signs and/or symptoms were reported regarding the EENT system. Neuro: No deficits noted. Cardiovascular: Reports chest pain, Denies diaphoresis, fatigue, lightheadedness, palpitations. Respiratory: Reports shortness of breath Denies cough. GI: No deficits noted. No signs and/or symptoms were reported involving the gastrointestinal system. : No deficits noted. No signs and/or symptoms were reported regarding the genitourinary system. Derm: No deficits noted. No signs and/or symptoms reported regarding the dermatologic system. Musculoskeletal: No deficits noted. No signs and/or symptoms reported regarding the musculoskeletal system. Historical: - Allergies: 16:43 Cipro; tl4 16:43 PENICILLINS; tl4 - Home Meds: 16:43 Depo-Provera IM [Active]; tl4 - PMHx: 16:43 Asthma; Endometrosis; tl4 - PSHx: 16:43 Appendectomy; left ovary and left fallopian tube removed.; tl4 - Immunization history:: Adult Immunizations unknown. - Social history:: Smoking status: Patient denies any tobacco usage or history of. - Family history:: not pertinent. - Hospitalizations: : No recent hospitalization is reported. Screenin:44 [facility] ED Fall Risk Assessment (Adult) History of falling in the last 3 months, tl4 including since admission No falls in past 3 months (0 pts) Confusion or Disorientation No (0 pts) Intoxicated or Sedated No (0 pts) Impaired Gait No (0 pts) Mobility Assist Device Used No (0 pt) Altered Elimination No (0 pt) Score/Fall Risk Level 0 - 2 = Low Risk Oriented to surroundings, Maintained a safe environment, Educated pt \T\ family on fall prevention, incl call for assistance when getting out of bed, Assessed \T\ reinforced patient's understanding of fall precautions, Provided non-skid footwear, Hourly rounding (assess needs \T\ fall precautionary measures) done, Used ambulatory aids as needed (educated on \T\ assisted with), Used gait belt as appropriate. Abuse screen: Denies threats or abuse. Denies injuries from another. Nutritional screening: No deficits noted. Tuberculosis screening: No symptoms or risk factors identified. Assessment: 17:59 Reassessment: Patient appears in no apparent distress at this time. Patient and/or iw family updated on plan of care and expected duration. Pain level reassessed. Patient is alert, oriented x 3, equal unlabored respirations, skin warm/dry/pink. Patient states feeling better. Patient states symptoms have improved. Vital Signs: 16:39 BP 126 / 93; Pulse 74; Resp 18; Temp 98.2(O); Pulse Ox 99% on R/A; Weight 123.38 kg; tl4 Height 5 ft. 10 in. ; Pain 10/10; 17:59 BP 128 / 78; Pulse 89; Resp 16; Temp 97.2; Pulse Ox 98% on R/A; iw 16:39 Body Mass Index 39.03 (123.38 kg, 177.8 cm) tl4 16:39 Pain Scale: Adult tl4 ED Course: 16:28 Patient arrived in ED. mg5 16:42 Triage completed. tl4 16:42 Arm band placed on right wrist. tl4 16:43 Andres Hughes MD is Attending Physician. rn 16:45 No provider procedures requiring assistance completed. tl4 16:45 Patient maintains SpO2 saturation greater than 95% on room air. tl4 16:55 XRAY Chest Pa And Lat (2 Views) In Process Unspecified. EDMS 17:59 Radha Boo, RN is Primary Nurse. iw 17:59 Patient did not have IV access during this emergency room visit. iw 18:00 Patient has correct armband on for positive identification. Provided Education on: . iw Pulse ox on. Administered Medications: No medications were administered Medication: 16:45 VIS not applicable for this client. tl4 Outcome: 17:45 Discharge ordered by . rn 17:59 Discharged to home ambulatory, with family, iw 17:59 Condition: good 17:59 Discharge instructions given to patient, family, Instructed on discharge instructions, follow up and referral plans. Demonstrated understanding of instructions, follow-up care, 18:00 Patient left the ED. Signatures: Dispatcher [employer] EDKS Radha Boo, DOMO RN Andres Hughes MD MD rn [place], [place] mg5 Gamaliel Gusman RN RN tl4
[2023-05-28 18:36] VITALS: BP 128/78; TEMP 97.2; O2SAT 98
--- NOTE | 2023-06-01 14:43 | EKG ---
Test Date: 2023-05-28 Test Time: 17:40:51 Territory Sales Consultant: LOTTIE MEASUREMENT RESULTS: Intervals: Rate: 70 CT: 158 QRSD: 88 QT: 404 QTc: 436 [place]: P: 18 CT: 158 QRS: 37 T: 27 INTERPRETIVE STATEMENTS: Normal sinus rhythm Normal ECG No previous ECG available for comparison Electronically Signed On 06-01-23 14:31:37 ALTERATION MANAGER by Jose Alfredo Garzon
== END ==
LOC: ER 16:24
DX: M77.8 Other enthesopathies, not elsewhere classified (principal); Z88.0 Allergy status to penicillin; Z88.1 Allergy status to other antibiotic agents
CPT/HCPCS: 71046; 93005